=== PATIENT | male | born 1990 | race African-American/Black ===

== ENCOUNTER 2018-01-25 09:57 | Emergency (ER) | payer MEDICAID, SELFPAY ==
[2018-01-25 09:58] VITALS: BP 128/68; PULSE 68; RESP 18; TEMP 36.7; O2SAT 99; BMI 24.3
--- NOTE | 2018-01-25 10:06 | EKG12_ITS ---
Test Reason : CHEST PRESSURE Blood Pressure : / mmHG Vent. Rate : 073 BPM Atrial Rate : 073 BPM P-R Int : 114 ms QRS Dur : 088 ms QT Int : 376 ms P-R-T Axes : 074 048 045 degrees QTc Int : 414 ms Normal sinus rhythm Low voltage QRS (limb leads) Confirmed by LUIS MIGUEL CASTANEDA, FLORENCIA ([id number]), primer expeditor and drier THOMAS MCKINNON ([id number]) on 01/28/2018 2:25:03 PM Referred By: DC Confirmed By:FLORENCIA BOLANOS MD
--- NOTE | 2018-01-25 10:06 | RAD_ITS ---
STUDY: X-RAY CHEST REASON FOR EXAM: Male, 27 years old. Cough. Chest pain. TECHNIQUE: Single frontal view of the chest is obtained. Good quality COMPARISON: February 06, 2014. FINDINGS: The lungs are clear and expanded. There is no demonstrated pleural abnormality. Normal size heart. Normal mediastinum and karina. Normal visualized pulmonary arteries. Normal visualized aortic arch and descending thoracic aorta. Normal visualized thoracic spine. Normal visualized ribs, clavicles, and shoulders. There is no demonstrated abnormality of the visualized soft tissue structures of the upper abdomen. RAD/Chest 1 View (Portable) IMPRESSION: No active chest disease. Electronically Signed: Beau Nevarez, at 10:38 EST Tel , Service support ,
--- NOTE | 2018-01-25 10:10 | ED.DCSUM_ITS ---
- ER Visit Summary Date of Service: 01/25/18 Chief Complaint: Chest pain History of Present Illness: The patient is a 27 M with substernal chest pain that he describes as a tightness. It started around 3 AM today. It is severe at times. Associate with a cough and backache. The patient never had this bef ore. He is not sure what brought it on. Nothing seems to make it better. It is worse in certain positions. No recent illnesses or fevers. He thought he might have a cold however. Denies any heart problems or history of blood clots. Denies any aortic issues or liver issues. Denies fever or other associated symptoms. Physical Examination: Afebrile and vital signs unremarkable. Patient appears uncomfortable with movement but is otherwise in no acute distress. Alert and oriented. Skin appears normal. Heart regular rate and rhythm. Lungs clear. Calves soft and supple. Test Results: EKG, chest x-ray, and blood work pending. Emergency Department Course and Treatment: Patient treated with a GI cocktail while awaiting results. I have low suspicion for ACS or dissection. He is not having classic infectious symptoms. He is PERC negative. Will first check for anything life-threatening or emergent. EKG showed sinus rhythm at a rate of 73. Chest x-ray was unremarkable. CBC normal. BMP unremarkable. Hepatic panel unremarkable. Lipase normal. Troponin normal. No improvement with GI cocktail. I suspect this may be myofascial pain. I have low suspicion for ACS or heart disease. Nothing to suggest PE or dissection. No signs of infection or nothing to suggest hepatobiliary, pancreatic, or GI pathology. Patient will be treated with a course of muscle relaxers. He may use anti-inflammatories and pbxj-ylh-gncgsqo remedies for pain. Follow-up with primary care. Treatment Plan: As above Disposition: Discharge Impression: 1. Epigastric pain This note was generated with Asterion dictation software. It may contain incorrect words, spelling, and punctuation that were not noted in review of the chart prior to signing ED Disposition - Plan for ED Patient: Chief Complaint: Cold Sx Referrals: Brent Miranda MD [Primary Care Provider] -
[2018-01-25] MEDS: Mag Hydrox/Al Hydrox/Simeth 30 ML UDC PO (10:24)
[2018-01-25 10:50] VITALS: RESP 18; O2SAT 97
[2018-01-25 10:58] LABS: Absolute Lymphocyte Count 1.83 X10^3/ul (0.83-4.51); Absolute Neutrophil Count 2.9 X10^3/uL (2.0-7.7); Basophil# 0.06 X10^3/uL; Basophil% 1.1 % (0-1); Eosinophil# 0.13 X10^3/uL; Eosinophils% 2.5 % (0-5); Hematocrit 44.9 % (40-54); Hemoglobin 14.8 g/dl (13.0-16.5); Lymphocyte # 1.83 X10^3/ul (4.0); Lymphocyte % 34.9 % (19-41); Mean Corpuscular Hgb 28.6 pg (27.0-32.0); Mean Corpuscular Volume 86.8 fL (80-94); Mean Platelet Vol. 11.3 fl (6.2-12.0); Monocyte# 0.38 X10^3/uL; Monocyte% 7.2 % (0-10); Neutrophil # 2.85 X10^3/uL (2.7-7.7); Neutrophil % 54.3 % (47-70); Platelet Count 258 K/mm3 (150-450); RBC Distribution Width CV 14.4 % (11.6-14.6); RBC Distribution Width SD 45.8 fl (35.1-43.9); Red Blood Count 5.17 M/mm3 (4.6-6.2); White Blood Count 5.3 K/mm3 (4.4-11.0)
[2018-01-25 11:01] LABS: POSITIVE COUNT NO; POSITIVE DIFFERENTIAL NO; POSITIVE MORPHOLOGY NO
[2018-01-25 11:07] LABS: ALB/GLOB Ratio 0.8 RATIO (0.9-2.4); AST(SGOT) 20 U/L (15-37); Alanine Aminotransfer ALT/SGPT 22 U/L (16-61); Albumin, Serum 3.1 g/dL (3.2-5.0); Alkaline Phosphatase 120 U/L (45-117); Anion Gap 8 (5-15); BUN 8 mg/dL (7-18); BUN/Creat Ratio 8.1 RATIO (10-20); Calcium,Total 8.5 mg/dL (8.5-10.1); Chloride 108 mmol/L (98-107); Creatinine, Serum 0.99 mg/dL (0.70-1.30); EST Glomerular Filtration Rate 97 mL/min (>60); Est Glom Filt Rate - Afr Amer 117 mL/min (>60); Estimated Creatinine Clearance 109.39 ml/min; Globulin 3.9 g/dL (2.2-4.2); Glucose 72 mg/dL (74-106); Lipase 149 U/L (73-393); Potassium 4.1 mmol/L (3.5-5.1); Sodium Level 141 mmol/L (136-145)
--- NOTE | 2018-01-25 11:19 | ED.DEP ---
ED Disposition - Plan for ED Patient: Chief Complaint: Cold Sx Instructions: ED Epigastric Pain [facility] Prescriptions: Cyclobenzaprine [Flexeril] 10 mg PO TID PRN #20 tab PRN Reason: Muscle Spasm Referrals: Brent Miranda MD [Primary Care Provider] -
--- OUTSIDE RECORDS SUMMARY | 2018-03-21 19:44 | XMS RPT_ITS ---
:1990 Author Organization [facility] Care Team Providers Name Role Phone Brent Miranda Primary Care Unavailable Beau Mendoza Attending Unavailable PROBLEMS PROBLEMS No Problem Records FoundPROCEDURES PROCEDURES No Procedure Records FoundRESULTS RESULTS 12 LEAD ELECTROCARDIOGRAM Observed: 01/28/2018 Status: F Source: [place] 2:25 PM [facility] REPOSITORY [facility] Cardiovascular Services [address] [place] [address] 12 Lead EKG 01/25/18 1016 MR#: [id number] Acct: [id number] Name: GAIL FIGUEROA Rep #: [id number] : 1990 27 From: Reagan Bolanos MD Attending Dr: Status: DEP ER Ordering Dr: Beau Mendoza MD Date: 01/25/18 Location: ED Sex: M AA Admitted: Test Reason : CHEST PRESSURE Blood Pressure : / mmHG Vent. Rate : 073 BPM Atrial Rate : 073 BPM P-R Int : 114 ms QRS Dur : 088 ms QT Int : 376 ms P-R-T Axes : 074 048 045 degrees QTc Int : 414 ms Normal sinus rhythm Low voltage QRS (limb leads) Confirmed by LUIS MIGUEL CASTANEDA, REAGAN ([id number]), sports editor THOMAS MCKINNON ([id number]) on 01/28/2018 2:25:03 PM Referred By: DC Confirmed By:REAGAN BOLANOS MD 01/28/18 1425 Date Reagan Bolanos MD CC: Beau Mendoza MD; Brent Miranda MD Signed DISCHARGE INSTRUCTION Observed: 01/25/2018 Status: F Source: [place] 12:04 PM [facility] REPOSITORY [facility] Medical Records Department [address] [place] [address] Discharge Instruction 01/25/18 1119 MR#: [id number] Acct: [id number] Name: GAIL FIGUEROA Rep #: [id number] : 1990 From: Beau Mendoza MD PCP: Brent Miranda MD Status: DEP ER ED Disposition - Plan for ED Patient: Chief Complaint: Cold Sx Instructions: ED Epigastric Pain [facility] Prescriptions: Cyclobenzaprine [Flexeril] 10 mg PO TID PRN #20 tab PRN Reason: Muscle Spasm Referrals: Brent Miranda MD [Primary Care Provider] - What to do if you have Problems For any increased pain, shortness of breath, bleeding, nausea or vomiting, chest pain, or any unexpected problems, contact your Primary Care Provider. Call [facility] ([phone]) or report to the closest Emergency Room. Call 911 if necessary. 01/25/18 1204 <Electronically signed by Beau Mendoza MD> Date Beau Mendoza MD Cosigner Signature (If Indicated): Date CC: Brent Miranda MD EMERGENCY DEPARTMENT Observed: 01/25/2018 Status: F Source: [place] SUMMARY 12:04 PM [facility] REPOSITORY [facility] Medical Records Department [address] [place] [address] Emergency Department Summary 01/25/18 1008 MR#: [id number] Acct: [id number] Name: GAIL FIGUEROA Rep #: [id number] : 1990 27 From: Beau Mendoza MD PCP: Brent Miranda MD Status: DEP ER - ER Visit Summary Date of Service: 01/25/18 Chief Complaint: Chest pain History of Present Illness: The patient is a 27 M with substernal chest pain that he describes as a tightness. It started around 3 AM today. It is severe at times. Associate with a cough and backache. The patient never had this before. He is not sure what brought it on. Nothing seems to make it better. It is worse in certain positions. No recent illnesses or fevers. He thought he might have a cold however. Denies any heart problems or history of blood clots. Denies any aortic issues or liver issues. Denies fever or other associated symptoms. Physical Examination: Afebrile and vital signs unremarkable. Patient appears uncomfortable with movement but is otherwise in no acute distress. Alert and oriented. Skin appears normal. Heart regular rate and rhythm. Lungs clear. Calves soft and supple. Test Results: EKG, chest x-ray, and blood work pending. Emergency Department Course and Treatment: Patient treated with a GI cocktail while awaiting results. I have low suspicion for ACS or dissection. He is not having classic infectious symptoms. He is PERC negative. Will first check for anything life-threatening or emergent. EKG showed sinus rhythm at a rate of 73. Chest x-ray was unremarkable. CBC normal. BMP unremarkable. Hepatic panel unremarkable. Lipase normal. Troponin normal. No improvement with GI cocktail. I suspect this may be myofascial pain. I have low suspicion for ACS or heart disease. Nothing to suggest PE or dissection. No signs of infection or nothing to suggest hepatobiliary, pancreatic, or GI pathology. Patient will be treated with a course of muscle relaxers. He may use anti-inflammatories and hxul-jif-ueuycuy remedies for pain. Follow-up with primary care. Treatment Plan: As above Disposition: Discharge Impression: 1. Epigastric pain This note was generated with Yap dictation software. It may contain incorrect words, spelling, and punctuation that were not noted in review of the chart prior to signing ED Disposition - Plan for ED Patient: Chief Complaint: Cold Sx Referrals: Brent Miranda MD [Primary Care Provider] - What to do if you have Problems For any increased pain, shortness of breath, bleeding, nausea or vomiting, chest pain, or any unexpected problems, contact your Primary Care Provider. Call [facility] ([phone]) or report to the closest Emergency Room. Call 911 if necessary. 01/25/18 1204 <Electronically signed by Beau Mendoza MD> Date Beau Mendoza MD Cosigner Signature (If Indicated): Date CC: Brent Miranda MD CBC W/DIFF, AUTOMATED Collected: 01/25/2018 Status: F Source: [place] 10:20 AM [facility] REPOSITORY TYPE CODE TESTS RESULT OUT OF RANGE REFERENCE UNITS LAB L100.1000 4.4-11.0 K/mm3 Normal WBC 5.3 LAB L100.1200 4.6-6.2 M/mm3 Normal RBC 5.17 LAB L100.1300 13.0-16.5 g/dl Normal HGB 14.8 LAB L100.1400 40-54 % Normal HCT 44.9 LAB L100.1500 80-94 fL Normal MCV 86.8 LAB L100.1600 27.0-32.0 pg Normal MCH 28.6 LAB L100.1700 32-36 g/gl Normal MCHC 33.0 LAB L100.1810 11.6-14.6 % Normal RDW CV 14.4 LAB L100.1820 35.1-43.9 fl High RDW SD 45.8 LAB L100.1900 150-450 K/mm3 Normal PLT 258 LAB L100.2000 6.2-12.0 fl Normal MPV 11.3 LAB L100.2100 47-70 % Normal NEUT% 54.3 LAB L100.2200 19-41 % Normal LY% 34.9 LAB L100.2300 0-10 % Normal MONO% 7.2 LAB L100.2400 0-5 % Normal EO% 2.5 LAB L100.2500 0-1 % High BASO% 1.1 LAB L100.2550 0.0-0.9 % Normal IM GRAN % 0.000 Result Comment: IG% - Immature Granulocytes (promyelocytes, myelocytes and metamyelocytes) > 1% indicates that a LEFT SHIFT is Present. LAB L100.2620 2.0-7.7 X10 3/uL Normal Absolute Neut 2.9 LAB L100.2720 0.83-4.51 X10 3/ul Normal Absolute Lymph 1.83 Performed By: #### L100.0100 #### [facility] [address] [place], [address] COMPREHENSIVE METABOLIC Collected: 01/25/2018 Status: F Source: [place] [facility] 10:20 AM [facility] REPOSITORY TYPE CODE TESTS RESULT OUT OF RANGE REFERENCE UNITS LAB L501.0100 74-106 mg/dL Low GLU 72 Result Comment: Please note revised GLUCOSE reference range effective 2017. LAB L501.1000 7-18 mg/dL Normal BUN 8 LAB L501.1100 0.70-1.30 mg/dL Normal CREAT,SERUM 0.99 Result Comment: The validity of the calculated GFR AND GFRAA in patients over 70 years has not been determined. Clinical correlation is essential. LAB L501.1110 >60 mL/min Normal EST GFR 97 Result Comment: Non- GFR Calc LAB L501.1115 >60 mL/min Normal EST GFR - AA 117 Result Comment: GFR Calc LAB L501.1255 ml/min Normal Estimated CRCL 109.39 LAB L501.1300 10-20 RATIO Low BUN/CRE 8.1 LAB L501.1500 6.4-8. g/dL 2 T PROT Normal 7.0 LAB L501.1800 3.2-5. g/dL Low 0 ALB 3.1 LAB L501.1950 2.2-4. g/dL 2 GLOB Normal 3.9 LAB L501.2000 0.9-2. RATIO Low 4 A/G 0.8 LAB L501.2200 8.5-10 mg/dL .1 CA Normal 8.5 LAB L501.4100 15-37 U/L AST Normal 20 LAB L501.4305 45-117 U/L High ALK P 120 LAB L501.4405 16-61 U/L ALT Normal 22 LAB L501.4600 0.20-1 mg/dL Low .00 T BILI 0.10 LAB L501.5300 136-14 mmol/L 5 NA Normal 141 LAB L501.5600 3.5-5. mmol/L 1 K Normal 4.1 LAB L501.5900 98-107 mmol/L High CL 108 LAB L501.6100 21.0-3 mmol/L 2.0 CO2 Normal 25.0 LAB L501.6200 5-15 GAP Normal 8 Performed By: #### L500.4050, L501.2450, L501.4010 #### [facility] [address] [place], [address] LIPASE Collected: 01/25/2018 Status: F Source: [place] 10:20 AM [facility] REPOSITORY TYPE CODE TESTS RESULT OUT OF RANGE REFERENCE UNITS LAB L501.2450 73-393 U/L Normal LIPASE 149 Performed By: #### L500.4050, L501.2450, L501.4010 #### [facility] [address] [place], [address] TROPONIN-I Collected: 01/25/2018 Status: F Source: [place] 10:20 AM [facility] REPOSITORY TYPE CODE TESTS RESULT OUT OF RANGE REFERENCE UNITS LAB L501.4010 <0.045 ng/mL Normal < 0.015 TROPONIN-I Result Comment: TROPONIN-I EXPECTED VALUES <0.045 Negative 0.045 - 0.590 Consistent with Cardiac Damage > OR = 0.600 Critical Value Not every elevated troponin is indicative of KS. These values should be used with clinical judgement in examining the patient's clinical picture for diagnosis. To establish a diagnosis of KS versus myocardial injury, there must be a demonstrated rise and/or fall in the troponin values, in addition to ischemic symptoms, EKG changes, new regional wall motion abnormality, and/or angiographical evidence. PLEASE NOTE: REFERENCE RANGES EDITED 17 Performed By: #### L500.4050, L501.2450, L501.4010 #### [facility] [address] [place], [place], [address] CHEST 1 VIEW Observed: 01/25/2018 Status: F Source: [place] (PORTABLE) 10:08 AM [facility] REPOSITORY [facility] Imaging Services [address] [place] [address] Chest 1 View (Portable) MR#: [id number] Acct: [id number] Name: GAIL FIGUEROA Rep #: [id number] : 1990 M 27 From: Beau Nevarez MD PCP: Brent Miranda MD Status: REG ER Study: Chest 1 View (Portable) Date of Exam: 01/25/18 Exam# [id number] Ordering Dr: Beau Mendoza MD STUDY: X-RAY CHEST REASON FOR EXAM: Male, 27 years old. Cough. Chest pain. TECHNIQUE: Single frontal view of the chest is obtained. Good quality COMPARISON: February 06, 2014. FINDINGS: The lungs are clear and expanded. There is no demonstrated pleural abnormality. Normal size heart. Normal mediastinum and karina. Normal visualized pulmonary arteries. Normal visualized aortic arch and descending thoracic aorta. Normal visualized thoracic spine. Normal visualized ribs, clavicles, and shoulders. There is no demonstrated abnormality of the visualized soft tissue structures of the upper abdomen. RAD/Chest 1 View (Portable) IMPRESSION: No active chest disease. Electronically Signed: Beau Nevarez, at 10:38 EST Tel , Service support , CC: Beau Mendoza MD; Brent Miranda MD Gauger Chief Delivery: Signed ALLERGIES ALLERGIES DATE TYPE / CODE NAME / CODE REACTION SEVERITY SOURCE 01/25/2018 Drug naproxen/F00 [facility] [id number]([facility] [address](SNOMED RM) Repository CT) ENCOUNTERS ENCOUNTERS ADMIT/DISCHARGE ACCOUNT ADMITTING ENCOUNTER LOCATION SOURCE NUMBER CLASS 01/25/2018/ [id number] Emergency [place] [address] [facility] ing:ED Repository PAYERS PAYERS ENCOUNTER GUARANTOR PAYER SUBSCRIBER SOURCE 01/25/2018 GAIL Thakur Primary GAIL Thakur [place] [id number] [place] Insurance:CARESOURCEP YOSTDOB: [facility] Number: [id number] [address]Avl: [id number] Repository [phone] () Date:2018-01-25[address]ATTN: [place] [address]QS: 01/25/2018 Secondary NOT GIVENUNK [place] Insurance:SELF PAY [facility] Number: Effective Repository Date:2018-01-25
== END 2018-01-25 11:28 | disposition home or self-care (01) ==
PROVIDERS: Emergency Provider Emergency Medicine; Family Provider Family Medicine; PCP Family Medicine
DX: R10.13 Epigastric pain (principal); R05 Cough; M54.9 Dorsalgia, unspecified; F41.9 Anxiety disorder, unspecified; Z79.899 Other long term (current) drug therapy; Z72.0 Tobacco use
CPT/HCPCS: 71045; 80053; 83690; 84484; 85025; 93005; 99284; A4216

== ENCOUNTER 2018-07-03 11:28 | Emergency (ER) | payer MEDICAID, SELFPAY ==
[2018-07-03 11:30] VITALS: BP 115/77; PULSE 88; RESP 14; TEMP 37.1; O2SAT 96; BMI 21.2
--- NOTE | 2018-07-03 11:52 | ED.VISSUMM ---
- ER Visit Summary Date of Service: 07/03/18 Chief Complaint: Left groin pain History of Present Illness: The patient is a 28 M who presents with pain in his left groin that began yesterday while at work. 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 Patient states he went to move the shingles with his foot and he felt a pop in his left groin. Patient states his pain is worse with any movement. Patient states his pain improves with rest. Patient describes the pain is sharp and aching. Patient admits to some nausea but denies any vomiting. Patient denies any chest pain or shortness of breath. Physical Examination: Vital signs are stable. Patient is afebrile. Patient is in no acute distress. Oral mucosa is pink and moist. Neck is supple. There is no JVD noted. Heart was regular rate and rhythm. Lungs are clear and equal bilaterally. Abdomen is soft. Bowel sounds are normal. There is no tenderness. There is no guarding noted. There are no inguinal hernias palpated. Musculoskeletal exam reveals tenderness over the left hip area. There is no deformity noted. Range of motion was limited in flexion of the left hip secondary to pain. Sensation was intact to light touch in all dermatomes of the lower extremities. Strength is 5/5 bilaterally in the lower extremities. The remaining physical exam is within normal limits. Emergency Department Course and Treatment: Patient was instructed to use ice to the area. Patient was instructed to follow-up with his primary care physician in 5 to 7 days. Patient was given a prescription for ibuprofen. Patient understood and was agreeable with the plan. All questions were answered. Disposition: Discharge home Impression: Left inguinal strain This note was generated with Buck Mason dictation software. It may contain incorrect words, spelling, and punctuation that were not noted in review of the chart prior to signing ED Disposition - Plan for ED Patient: Disposition: Home or Assisted Living Diagnosis: Strain of left inguinal muscle Instructions: ED Strain Groin Prescriptions: Ibuprofen 800 mg PO Q8H PRN PRN #20 tab PRN Reason: Pain Referrals: Brent Miranda MD [Primary Care Provider] - 5-7 Days
--- NOTE | 2018-07-03 11:57 | ED.DCSUM_ITS ---
- ER Visit Summary Date of Service: 07/03/18 Chief Complaint: Left groin pain History of Present Illness: The patient is a 28 M who presents with pain in his left groin that began yesterday while at work. 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 Patient states he went to move the shingles with his foot and he felt a pop in his left groin. Patient states his pain is worse with any movement. Patient states his pain improves with rest. Patient describes the pain is sharp and aching. Patient admits to some nausea but denies any vomiting. Patient denies any chest pain or shortness of breath. Physical Examination: Vital signs are stable. Patient is afebrile. Patient is in no acute distress. Oral mucosa is pink and moist. Neck is supple. There is no JVD noted. Heart was regular rate and rhythm. Lungs are clear and equal bilaterally. Abdomen is soft. Bowel sounds are normal. There is no tenderness. There is no guarding noted. There are no inguinal hernias palpated. Musculoskeletal exam reveals tenderness over the left hip area. The re is no deformity noted. Range of motion was limited in flexion of the left hip secondary to pain. Sensation was intact to light touch in all dermatomes of the lower extremities. Strength is 5/5 bilaterally in the lower extremities. The remaining physical exam is within normal limits. Emergency Department Course and Treatment: Patient was instructed to use ice to the area. Patient was instructed to follow-up with his primary care physician in 5 to 7 days. Patient was given a prescription for ibuprofen. Patient understood and was agreeable with the plan. All questions were answered. Disposition: Discharge home Impression: Left inguinal strain This note was generated with YouSticker dictation software. It may contain incorrect words, spelling, and punctuation that were not noted in review of the chart prior to signing ED Disposition - Plan for ED Patient: Disposition: Home or Assisted Living Diagnosis: Strain of left inguinal muscle Instructions: ED Strain Groin Prescriptions: Ibuprofen 800 mg PO Q8H PRN PRN #20 tab PRN Reason: Pain Referrals: Brent Miranda MD [Primary Care Provider] - 5-7 Days
== END 2018-07-03 12:16 | disposition home or self-care (01) ==
PROVIDERS: Emergency Provider Emergency Medicine; Family Provider Family Medicine; PCP Family Medicine
DX: S39.011A Strain of muscle, fascia and tendon of abdomen, initial encounter (principal); R11.0 Nausea; X58.XXXA Exposure to other specified factors, initial encounter; Y93.9 Activity, unspecified; Y92.9 Unspecified place or not applicable; F17.200 Nicotine dependence, unspecified, uncomplicated
CPT/HCPCS: 99282

== ENCOUNTER 2020-01-17 16:26 | Emergency (ER) | payer MEDICAID, SELFPAY ==
[2020-01-17 16:27] VITALS: BP 134/80; PULSE 76; RESP 25; TEMP 37.1; O2SAT 100; BMI 23.8
--- NOTE | 2020-01-17 16:40 | RAD_ITS ---
STUDY: X-RAY CHEST REASON FOR EXAM: Male, 29 years old. Mid chest pain. TECHNIQUE: AP COMPARISON: None. FINDINGS: The lungs are clear and expanded. There is no demonstrated pleural abnormality. Normal size heart. Normal mediastinum and karina. Normal visualized pulmonary arteries. Normal visualized aortic arch and descending thoracic aorta. Normal visualized thoracic spine. Normal visualized ribs, clavicles, and shoulders. There is no demonstrated abnormality of the visualized soft tissue structures of the upper abdomen. RAD/Chest 1 View (Portable) IMPRESSION: Stable, nonacute portable x-ray examination of the chest. Electronically Signed: Joesph Mattson MD (Brooks) at 17:31 EST , Service support ,
--- NOTE | 2020-01-17 16:40 | EKG12_ITS ---
Test Reason : CP Blood Pressure : / mmHG Vent. Rate : 069 BPM Atrial Rate : 069 BPM P-R Int : 130 ms QRS Dur : 090 ms QT Int : 374 ms P-R-T Axes : 069 034 060 degrees QTc Int : 400 ms Normal sinus rhythm Possible Left atrial enlargement Borderline ECG Confirmed by SARAI CASTANEDA, JANE ([id number]), advertising editor GOGO SENA ([id number]) on 01/20/2020 10:35:01 AM Referred By: DUNG Confirmed By:JANE MOON MD
--- NOTE | 2020-01-17 16:54 | ED.DCSUM_ITS ---
- ER Visit Summary Date of Service: 01/17/20 Chief Complaint: Left lower chest pain History of Present Illness: The patient is a 29 M past medical history of anxiety and depression. No prior cardiac history. No family history. No history of DVT or blood clots. No risk factors. No family history of clotting disorder. No hemoptysis. No pleuritic pain. Patient states last night he had intermittent left-sided chest pain again today. Worse with movement. Denies dyspnea. Denies fever or cough. Denies leg pain or swelling. He has had no recent travel, surgery or immobilization. Physical Examination: Well-appearing young male. No acute distress. Vital signs stable and afebrile. Pulse ox 100% on room air no hypoxia. H EENT exam unremarkable. Neck nontender. Lungs clear to auscultation bilaterally. Equal symmetrical. Chest wall unremarkable. Nontender. No signs of trauma. No subcu air crepitance. No bony tenderness. Heart regular rate and rhythm rate about 70 no murmur. Abdomen soft nontender normal bowel sounds no peritoneal signs. Absolutely no abdominal tenderness. Back nontender. Extremities moves all 4. Equal symmetrical [employer] consultant strength. Equal symmetrical radial pulses. Calves are nontender without edema or cords. Normal motor strength upper and lower extremities. Back nontender. Skin unremarkable. Test Results: EKG shows normal sinus rhythm rate of 69 with no acute signs of ND or ischemia. No S1Q3T3. Portable chest x-ray interpreted by myself. Shows normal cardiac silhouette, mediastinum and lung hooper. No bony abnormalities. No infiltrate. No pneumothorax. Radiologist is pending. Emergency Department Course and Treatment: Patient treated with Motrin for pain. Elderly needs a lab work. He has no risk factors for DVT or PE. Sounds like it is musculoskeletal. He has a normal EKG. Repeat exam patient is doing well at 1728. I went over the x-ray with him. Treatment Plan: Motrin for pain. Follow-up if not improving. Disposition: discharge Impression: Left-sided chest pain secondary to musculoskeletal etiology This note was generated with NetMovieation software. It may contain incorrect words, spelling, and punctuation that were not noted in review of the chart prior to signing ED Disposition - Plan for ED Patient: Referrals: Brent Miranda MD [Primary Care Provider] -
--- NOTE | 2020-01-17 17:30 | ED.DEP ---
ED Disposition - Plan for ED Patient: Disposition: Home or Assisted Living Instructions: ED Strain Chest Wall Referrals: Brent Miranda MD [Primary Care Provider] - 1 Week if not improving Additional Instructions: Motrin or ibuprofen for pain. 600 mg 3 times a day. This should progressively improve if not follow-up with your doctor. Your EKG and chest x-ray were both normal.
[2020-01-17 17:35] VITALS: BP 125/84; PULSE 80; RESP 20
[2020-01-17] MEDS: Ibuprofen 600 MG Tablet PO (17:41)
== END 2020-01-17 17:42 | disposition home or self-care (01) ==
PROVIDERS: Emergency Provider Emergency Medicine; PCP Family Medicine
DX: R07.89 Other chest pain (principal); F41.9 Anxiety disorder, unspecified; F32.9 Major depressive disorder, single episode, unspecified; F17.200 Nicotine dependence, unspecified, uncomplicated
CPT/HCPCS: 71045; 93005; 99284; A4216

== ENCOUNTER 2020-07-28 09:00 | Emergency (ER) | payer MEDICAID, SELFPAY ==
[2020-07-28 09:01] VITALS: BP 130/76; PULSE 71; RESP 15; TEMP 36.4; O2SAT 96; BMI 21.2
--- NOTE | 2020-07-28 09:07 | EDS_ITS ---
HPI History of Present Illness Chief Complaint: GI Bleed Informant: patient Onset/Context/Timing Onset: Today Current Severity: Mild Maximum Severity: Mild Narrative Narrative: Patient presents to the emergency department with 1 episode of bright red blood per rectum. Patient states that he moved his bowels today. He states that he noticed some bright red blood He denies any fevers or chills. He is not on anticoagulants. with the stool and on the toilet paper. His bleeding is since stopped. He denies any constipation. He denies abdominal pain. PFSH PFSH no medical history Home Medications docusate sodium [Colace] 100 mg PO BID #30 cap 07/28/20 [Rx Last Taken Unknown] hydrocortisone [Anusol-HC] 1 applic NH QHS PRN #30 g 07/28/20 [Rx Last Taken Unknown] Allergy/AdvReac Type Severity Reaction Status Date / Time naproxen [From Naprosyn] Allergy Rash Verified 07/28/20 09:03 Social History Smoking Status: Current every day smoker tobacco type: cigarettes ROS ROS ED Constitutional Constitutional ED: Denies chills or fever(s) Eyes Eyes: Denies blurry vision or change in vision ENT ENT ED: Denies ear pain or sore throat Cardiovascular Cardiovascular: Denies chest pain or palpitations Respiratory/Chest Respiratory/Chest: Denies cough, dyspnea or dyspnea on exertion Gastrointestinal Gastrointestinal: Reports constipation Genitourinary Genitourinary ED: Denies dysuria or urinary frequency Musculoskeletal Musculoskeletal: Denies arthralgias or myalgias Integumentary Denies rash Neurologic Neurologic: Denies headache(s) or paresthesias Psychiatric Psychiatric: Denies anxiety or depression Endocrine Endocrinology: Denies polydipsia or polyuria Allergic/Immunologic Allergic/Immunologic ED: Denies urticaria EXAM Physical Exam Const Vital Signs: 07/28/20 09:01 Temperature 97.6 F L Temperature Source Temporal Pulse Rate 71 Respiratory Rate 15 Blood Pressure 130/76 H Blood Pressure Mean 94 Pulse Ox 96 Oxygen Delivery Method Room Air Positive well nourished and well developed General Appearance ED: well developed HEENT Reports normocephalic, head/scalp atraumatic and moist mucous membranes Eyes PERRL and EOMs intact bilaterally Neck no lymphadenopathy and supple General: Negative for tenderness Chest Wall inspection of chest normal Resp normal respiratory effort and clear to auscultation bilaterally Cardio regular rate, regular rhythm and no murmurs GI normal to inspection, nondistended, normoactive bowel sounds Palpation: Negative for tender, guarding or rebound tenderness present Narrative: Rectal exam was done with nurse cinder pitman. Patient has a small fissure at the 12 o'clock position with stigmata of recent bleeding. There is no active bleeding. There is no abscess or significant hemorrhoid. Back/Spine no CVA tenderness Cervical Spine: Negative for cervical spine tenderness Thoracic Spine / Upper Back: Negative for thoracic spinal tenderness Extremity normal to inspection General Extremety ED: Negative for tenderness Neuro oriented x3 and CN's II-XII intact bilaterally Neuro Narrative: No focal deficits appreciated. Sensorium / Orientation: alert Psych mental status grossly normal Skin no rashes or lesions noted, no wounds and skin turgor normal MDM MDM MDM Narrative Medical decision making narrative: The patient presents with episode of blood per rectum. He does have fissure on examination. He has no pain. He is not on anticoagulants. I am going to place him on Anusol and stool softeners. He will be discharged home. Impression 1. Anal fissure Discharge Plan Triage Chief Complaint: GI Bleed ED Provider: Jose Lynch Dx/Rx/DC Orders Instructions: ED Lower GI Bleeding (Stable) Prescriptions: New docusate sodium [Colace] 100 mg capsule 100 mg PO BID Qty: 30 RF: 0 hydrocortisone [Anusol-HC] 2.5 % cream with perineal applicator 1 applic NH QHS PRN (Reason: pain) Qty: 30 RF: 0 Primary Care Provider: Brent Miranda Referrals: Brent Miranda MD [Primary Care Provider] -
[2020-07-28 09:21] VITALS: RESP 16
== END 2020-07-28 09:22 | disposition home or self-care (01) ==
LOC: ED 09:19
PROVIDERS: Emergency Provider Emergency Medicine; PCP Family Medicine
DX: K60.2 Anal fissure, unspecified (principal); F17.210 Nicotine dependence, cigarettes, uncomplicated
CPT/HCPCS: 99282

== ENCOUNTER 2021-08-06 20:52 | Emergency (ER) | payer OTHER, MEDICAID, SELFPAY ==
[2021-08-06 20:53] VITALS: BP 129/85; PULSE 95; RESP 16; TEMP 36.1; O2SAT 97; BMI 22.1
--- NOTE | 2021-08-06 21:06 | ED.VIS.DENTA ---
HPI History of Present Illness Chief Complaint: Dental Detail of Chief Complaint: Left upper dental pain. Dental caries. Informant: patient Onset/Context/Timing Onset: Today and Hours Context: Gradual Onset Timing: Continuous Current Severity: Moderate Maximum Severity: Moderate Associated Symptoms Assocated Symptom - Dental: cold sensitivity and hot sensitivity; Negative for fever, jaw swelling or face swelling Narrative Narrative: 31-year-old male no seen past medical or surgical history. States in June was on antibiotics for dental caries and dental infection. Has not seen a dentist as of yet for that. Has been off antibiotics now 1 to 2 weeks. States today in the last several hours has developed pain in the left upper dentition. No other complaints. Prior similar symptoms: Yes Recent Illness/Hospitalization: No PFSH PFSH Medical History no medical history no medical history Home Medications penicillin V potassium 500 mg PO 4X/DAY #40 tab 08/06/21 [Rx Last Taken Unknown] Allergy/AdvReac Type Severity Reaction Status Date / Time naproxen [From Naprosyn] Allergy Rash Verified 08/06/21 20:55 Surgical History no surgical history no surgical history Social History Smoking Status: Current every day smoker tobacco type: cigarettes ROS ROS ED ROS Narrative Dental pain. Review of Systems ROS Unobtainable: Denies due to encephalopathy Constitutional Constitutional ED: Denies fever(s) Eyes Eyes: Denies change in vision ENT ENT ED: Denies ear pain Cardiovascular Cardiovascular: Denies chest pain Respiratory/Chest Respiratory/Chest: Denies cough or dyspnea Gastrointestinal Gastrointestinal: Denies abdominal pain, nausea or vomiting Genitourinary Genitourinary ED: Denies dysuria Musculoskeletal Musculoskeletal: Denies myalgias Integumentary Denies rash Neurologic Neurologic: Denies headache(s) Psychiatric Psychiatric: Denies depression Endocrine Endocrinology: Denies polyuria Hematologic/Lymphatic Hematologic/Lymphatic: Denies easy bruising Allergic/Immunologic Allergic/Immunologic ED: Denies urticaria EXAM Physical Exam Narrative Exam Narrative: 31-year-old male complaining of dental pain. Vital signs stable afebrile. H EENT exam unremarkable except very poor dentition. Multiple caries. Dental decay. His left upper molars and premolars eroded to the gumline. There is gingival swelling but no abscess. Able to open and close his mouth. No trouble swallowing or breathing. The floor of his mouth is nontender. There is no swelling to his face. There is no swelling to his neck or lymphadenopathy or tenderness. Lungs are clear. Heart regular rate and rhythm no murmur. Otherwise exam unremarkable. Const Vital Signs: 08/06/21 20:53 Temperature 96.9 F L Temperature Source Temporal Pulse Rate 95 Respiratory Rate 16 Blood Pressure 129/85 H Blood Pressure Mean 99 Pulse Ox 97 Oxygen Delivery Method Room Air Positive well nourished and well developed; Negative for obese, cachectic, contractures or unkempt General Appearance ED: well developed and NAD; Negative for unkempt, cachectic or contractures Nutritional Appearance: Negative for cachectic or obese HEENT tenderness; Negative for trauma Mouth ED: Yes lips normal, Yes tongue normal, Yes salivary gland normal, No mouth trauma and No salivary gland abnormal Mouth: lips normal, tongue normal, salivary gland normal, No mouth trauma and No salivary gland abnormal Teeth and Gingiva: abnormal tooth and associated gingiva, caries, gingiva abnormal, poor dentition and teeth discoloration Throat: posterior oropharynx normal Eyes PERRL and EOMs intact bilaterally General Eye ED: Negative for pale conjunctiva or scleral icterus Neck no lymphadenopathy, supple and no JVD General: normal visual inspection; Negative for anterior neck swelling or tenderness Lymph Lymphatic: no lymphadenopathy noted; Negative for lymphadenopathy Chest Wall inspection of chest normal and palpation of chest normal Resp normal respiratory effort, no retractions and clear to auscultation bilaterally Cardio regular rate, regular rhythm, S1 normal heart sound, S2 normal heart sound and no murmurs GI normal to inspection, nondistended, normoactive bowel sounds, non-tender, non-distended and no masses Palpation: soft Back/Spine no CVA tenderness General Back: Negative for CVA tenderness Thoracic Spine / Upper Back: Negative for thoracic spinal tenderness or paraspinal muscle tenderness Extremity normal to inspection and no joint enlargement General Extremety ED: Negative for edema General Extremity: Negative for edema Neuro oriented x3 and moves all extremities Sensorium / Orientation: alert, oriented to person, oriented to place and oriented to time Motor Exam: strength 5/5 throughout Psych mental status grossly normal Psych Narrative: Due to dental pain. Appearance: Negative for unkempt Mood & Affect: tearful; Negative for depressed Skin no rashes or lesions noted and no wounds MDM MDM MDM Narrative Medical decision making narrative: 31-year-old male very poor dentition with dental caries, dental erosion and decay and gingivitis. We placed on Pen-Vee K given first dose here. Placed on it for 10 days. Tylenol and Motrin at home for pain. He will be given Motrin here and 2 [employer] to use at home. He will not be given a narcotic prescription. He knows it is very important him to follow-up with a dentist as soon as possible. Discharge Plan Triage Chief Complaint: Dental ED Provider: Julian Hernandez Dx/Rx/DC Orders Clinical Impression: Pain, dental, Dental caries, Acute gingivitis Instructions: ED Dental Pain, ED Dental Cavity Prescriptions: New penicillin V potassium 500 mg tablet 500 mg PO 4X/DAY Qty: 40 RF: 0 Primary Care Provider: Brent Miranda Referrals: Brent Miranda MD [Primary Care Provider] - Angela Mendenhall [NON-STAFF] - As soon as possible Activity Restrictions/Additional Instructions: Follow-up with a dentist of your choice as soon as possible. Motrin and Tylenol for pain. [employer] for pain tonight. Warm salt water gargling. Penicillin 1 pill 4 times a day till gone. Disposition Disposition: Home, Self Care
[2021-08-06] MEDS: Ibuprofen 400 MG Tablet 800 MG PO (21:13)
[2021-08-06] MEDS: Penicillin Vk 250 MG Tablet 500 MG PO (21:14)
[2021-08-06] MEDS: HYDROcodone Bitartrate/Apap 5/325 Tablet PO (21:14)
== END 2021-08-06 21:18 | disposition home or self-care (01) ==
PROVIDERS: Emergency Provider Emergency Medicine; PCP Family Medicine; Visit Provider Emergency Medicine
DX: K05.00 Acute gingivitis, plaque induced (principal); K02.9 Dental caries, unspecified; F17.210 Nicotine dependence, cigarettes, uncomplicated
CPT/HCPCS: 99283

== ENCOUNTER 2021-09-27 06:19 | Emergency (ER) | payer OTHER, MEDICAID, SELFPAY ==
[2021-09-27 06:21] VITALS: BP 127/94; PULSE 60; RESP 17; TEMP 36.7; O2SAT 100; BMI 22.1
--- NOTE | 2021-09-27 06:28 | EX.ED.DYSGE1 ---
HPI History of Present Illness Chief Complaint: Anxiety Detail of Chief Complaint: Panic attack Informant: patient Narrative Narrative: Patient presents to the emergency department via EMS after having a panic attack. Patient states that he was in the parking lot at work when he started feeling short of breath and hyperventilating. He started feeling numb and tingly all over. Patient states that he has a history of anxiety attacks but notes had a typically stop them by breathing into a paper bag. He normally has a panic attack about once a month. Patient states that he saw that there was some money missing out of an account that he has and he was concerned about finances and buying kids there back to school things. Patient's been stressing about his finances. Patient normally has Xanax or Klonopin to take as needed basis but has not had a refill recently. Patient denies feeling suicidal or homicidal. On arrival to the ER he does feel improved but still feels a little numb all over. Prior similar symptoms: Yes PFSH PFSH Medical History no medical history Home Medications lorazepam 1 mg tablet (Ativan) 1 mg PO TID PRN anxiety #10 tabs 09/27/21 [Rx Last Taken Unknown] Allergy/AdvReac Type Severity Reaction Status Date / Time naproxen [From Naprosyn] Allergy Rash Verified 09/27/21 06:21 Social History Smoking Status: Current every day smoker tobacco type: cigarettes ROS ROS ED Review of Systems ROS Unobtainable: other Constitutional Constitutional ED: Reports lethargy; Denies chills, fever(s), sweats or weight loss Eyes Eyes: Denies blurry vision, change in vision or diplopia ENT ENT ED: Denies rhinorrhea or sore throat Cardiovascular Cardiovascular: Reports chest pain and racing heartbeat; Denies orthopnea Respiratory/Chest Respiratory/Chest: Reports dyspnea and dyspnea on exertion; Denies cough, orthopnea or sputum Gastrointestinal Gastrointestinal: Denies abdominal pain, diarrhea, nausea or vomiting Genitourinary Genitourinary ED: Denies dysuria, hematuria or urinary frequency Musculoskeletal Musculoskeletal: Denies arthralgias, back pain, myalgias or neck pain Integumentary Denies abscess, Abrasions or rash Neurologic Neurologic: Denies headache(s) or weakness Psychiatric Psychiatric: Reports anxiety; Denies depression or suicidal thoughts Endocrine Endocrinology: Denies polydipsia, polyphagia or polyuria Hematologic/Lymphatic Hematologic/Lymphatic: Denies easy bleeding, easy bruising or lymphadenopathy Allergic/Immunologic Allergic/Immunologic ED: Denies mouth swelling, tongue swelling or urticaria EXAM Physical Exam Const Vital Signs: 09/27/21 06:21 Temperature 98.1 F Temperature Source Temporal Pulse Rate 60 Respiratory Rate 17 Blood Pressure 127/94 H Blood Pressure Mean 105 Pulse Ox 100 Oxygen Delivery Method Room Air Positive well nourished and well developed General Appearance ED: well developed and NAD HEENT Reports TM's clear and moist mucous membranes normocephalic and atraumatic; Negative for trauma or tenderness Tympanic Membrane ED: Yes TM's clear Eyes PERRL and EOMs intact bilaterally General Eye ED: Negative for pale conjunctiva or scleral icterus Neck no lymphadenopathy, supple and no JVD General: Negative for tenderness Chest Wall inspection of chest normal and palpation of chest normal Chest: Negative for tenderness Resp normal respiratory effort and clear to auscultation bilaterally Effort and Inspection: Negative for respiratory distress or pain with movement Auscultation: Negative for rhonchi, wheezes or diminished lung sounds Cardio regular rate, regular rhythm, S1 normal heart sound, S2 normal heart sound and no murmurs Peripheral Pulses: pulses 2+ throughout GI normal to inspection, nondistended, normoactive bowel sounds, soft to palpation, non-tender, non-distended and no masses Back/Spine no CVA tenderness and no thoracic nor lumbar tenderness Extremity normal to inspection General Extremety ED: Negative for edema General Extremity: Negative for edema Neuro oriented x3, CN's II-XII intact bilaterally, no sensory deficits noted and gait normal Sensorium / Orientation: awake, alert, oriented to person, oriented to place and oriented to time Motor Exam: strength 5/5 throughout and strength abnormal Psych mental status grossly normal Skin no rashes or lesions noted and no wounds MDM MDM MDM Narrative Medical decision making narrative: Patient will be given a milligram of Ativan. Patient will be given a prescription for as needed Ativan. Patient advised to follow-up with primary care physician in 3 to 5 days. Discharge Plan Triage Chief Complaint: Anxiety ED Provider: La Agee Dx/Rx/DC Orders Clinical Impression: Panic attack Instructions: ED Panic Attack Prescriptions: New lorazepam [Ativan] 1 mg tablet 1 mg PO TID PRN (Reason: anxiety) Qty: 10 0RF Primary Care Provider: Brent Miranda Referrals: Brent Miranda MD [Primary Care Provider] - 3-5 Days Disposition Disposition: Home, Self Care
--- NOTE | 2021-09-27 06:32 | ED.RN ---
Patient was discussing his social isolation during COVID and now the financial changes. States he has a and children and saw he only had $75 in his account and he does not know how to manage back to school. Resource list given to patient for community places and [facility] who have school supply drives.
[2021-09-27] MEDS: LORazepam 1 MG Tablet PO (06:42)
== END 2021-09-27 07:03 | disposition home or self-care (01) ==
PROVIDERS: Emergency Provider Emergency Medicine; PCP Family Medicine; Visit Provider Emergency Medicine
DX: F41.0 Panic disorder [episodic paroxysmal anxiety] (principal); F17.210 Nicotine dependence, cigarettes, uncomplicated
CPT/HCPCS: 99284

== ENCOUNTER 2022-01-03 22:16 | Emergency (ER) | payer OTHER, MEDICAID, SELFPAY ==
[2022-01-03 22:17] VITALS: BP 125/73; PULSE 88; RESP 16; TEMP 35.6; O2SAT 100; BMI 24.3
--- NOTE | 2022-01-03 22:53 | EX.ED.SAOD ---
HPI History of Present Illness Chief Complaint: Overdose Informant: patient and spouse/S.O. Onset/Context/Timing Onset: Today (JPTA) Context: Sudden Onset (After snorting a drug) Timing: Continuous Quality: Decreased level of consciousness Current Severity: Moderate Maximum Severity: Severe Worsened by: Nothing Relieved by: Narcan given by EMS Associated Symptoms Prehospital Treatment: Naloxone (4 mg intranasally) Narrative Narrative: Patient was with his significant other, he went out back to smoking Black and mild according to the significant other based on what he told her, however the patient admits that he snorted a crushed up PERC 10, but it ended up being heroin I guess. Patient' significant others found him unconscious within 10 or 15 minutes of this when she went to check on him, called EMS and did rescue breaths in the meantime. EMS gave intranasal Narcan 4 mg total which woke him up. Patient states he uses on occasion not daily. PFSH PFSH Medical History no medical history no medical history Home Medications lorazepam 1 mg tablet (Ativan) 1 mg PO TID PRN anxiety #10 tabs 09/27/21 [Rx Last Taken Unknown] Allergy/AdvReac Type Severity Reaction Status Date / Time naproxen [From Naprosyn] Allergy Rash Verified 01/03/22 22:16 Social History Smoking Status: Current every day smoker tobacco type: cigarettes ROS ROS ED Constitutional Constitutional ED: Denies chills or fever(s) Eyes Eyes: Denies change in vision or diplopia ENT ENT ED: Denies rhinorrhea or sore throat Cardiovascular Cardiovascular: Denies chest pain or palpitations Respiratory/Chest Respiratory/Chest: Denies cough or dyspnea Gastrointestinal Gastrointestinal: Denies abdominal pain, diarrhea, nausea or vomiting Genitourinary Genitourinary ED: Denies dysuria or hematuria Musculoskeletal Musculoskeletal: Denies back pain or neck pain Integumentary Denies abscess or rash Neurologic Neurologic: Denies headache(s), paresthesias or weakness Psychiatric Psychiatric: Denies anxiety or suicidal thoughts EXAM Physical Exam Const Vital Signs: 01/03/22 22:17 01/03/22 22:39 01/03/22 23:04 Temperature 96.0 F L Temperature Source Temporal Pulse Rate 88 Respiratory Rate 16 Respiratory Effort Normal Respiratory Pattern Normal Blood Pressure 125/73 H Blood Pressure Mean 90 Pulse Ox 100 Oxygen Delivery Method Room Air Room Air Positive well nourished and well developed Constitutional Narrative: Lethargic. Alerts to voice. General Appearance ED: well developed and NAD HEENT Reports moist mucous membranes normocephalic and atraumatic Eyes PERRL and EOMs intact bilaterally Eyes Narrative: Pinpoint pupils. Neck full ROM and supple Resp normal respiratory effort and clear to auscultation bilaterally Cardio regular rate, regular rhythm and no murmurs Rate: Negative for tachycardic GI non-tender and non-distended Auscultation: normoactive bowel sounds Palpation: soft Back/Spine no CVA tenderness General Back: other FROM Extremity normal to inspection General Extremety ED: Negative for edema, pulses abnormal or tenderness General Extremity: Negative for edema or pulses abnormal Neuro oriented x3, CN's II-XII intact bilaterally and no sensory deficits noted Scarlett Coma Scale: document GCS findings To Voice Obeys Commands Oriented 14 Sensorium / Orientation: lethargic Motor Exam: strength 5/5 throughout Psych mental status grossly normal, thought process normal, denies homicidal ideation and denies suicidal ideation Skin no rashes or lesions noted and no wounds MDM MDM MDM Narrative Medical decision making narrative: While I saw the patient, he needed repeated stimulation to remain awake and to breathe. I had nurses place an IV urgently as well as administer Narcan IV 0.4 mg and prophylactic oxygen. He woke up quickly with this, and although subsequently was somnolent, continued to breathe with a rate at 20 or more, and became a little nauseated, for which he was treated with IV zofran. He was observed for most 2 hours total. He was up early this morning, worked all day, it is around midnight, we got him up out of bed and he was able to walk okay so I think a lot of it is fatigued from that. He stable for discharge. Discharge Plan Triage Chief Complaint: Overdose ED Provider: Floyd Musa Dx/Rx/DC Orders Clinical Impression: Opiate overdose Instructions: ED Overdose, Opiate Prescriptions: No Action lorazepam [Ativan] 1 mg tablet 1 mg PO TID PRN (Reason: anxiety) Qty: 10 0RF Primary Care Provider: Brent Miranda Referrals: Brent Miranda MD [Primary Care Provider] - [facility] [Non-Staff] - As Needed (for help with addiction) Disposition Disposition: Home, Self Care
[2022-01-03] MEDS: Naloxone 0.4 MG/ML Syringe IV (22:58)
[2022-01-04] MEDS: Ondansetron 4 MG/2 ML Vial IV (00:02)
== END 2022-01-04 00:20 | disposition home or self-care (01) ==
PROVIDERS: Emergency Provider Emergency Medicine; PCP Family Medicine; Visit Provider Emergency Medicine
DX: T40.2X4A Poisoning by other opioids, undetermined, initial encounter (principal); R53.83 Other fatigue; F17.210 Nicotine dependence, cigarettes, uncomplicated
CPT/HCPCS: 96374; 96375; 99285; J2310; J2405

== ENCOUNTER 2022-01-05 06:48 | Emergency (ER) | payer OTHER, MEDICAID, SELFPAY ==
[2022-01-05 06:49] VITALS: BP 146/70; PULSE 67; RESP 14; TEMP 36.7; O2SAT 100; BMI 20.9
--- NOTE | 2022-01-05 07:36 | EDS_ITS ---
HPI History of Present Illness Chief Complaint: Nausea/Vomiting Informant: patient Onset/Context/Timing Onset: Yesterday Context: Gradual Onset Timing: Continuous Quality: Aching Location: Generalized abdomen Worsened by: Nothing Relieved by: Nothing Narrative Narrative: Patient presents with feeling lightheaded and numb. Patient states that he was seen here 2 days ago for an opiate overdose. Patient states that since that time he has been having some nausea and vomiting. Patient states he feels numb all over. Patient states he feels dehydrated. Patient admits to some diffuse abdominal pain. Patient states it is intermittent. Patient states nothing makes it worse and nothing makes it better. Patient states he was able to keep some bread down yesterday. Patient denies any hematemesis or coffee-ground emesis. Patient does admit to some diarrhea. Patient denies any melena or hematochezia. Patient denies any urinary complaints. PFSH PFSH Medical History no medical history no medical history Home Medications NK 01/05/22 [History Last Taken Unknown] Allergy/AdvReac Type Severity Reaction Status Date / Time naproxen [From Naprosyn] Allergy Rash Verified 01/05/22 06:52 Surgical History no surgical history no surgical history Social History Smoking Status: Current every day smoker tobacco type: cigarettes and cigars ROS ROS ED Constitutional Constitutional ED: Reports chills and subjective; Denies fever(s) Eyes Eyes: Denies blurry vision or change in vision ENT ENT ED: Denies rhinorrhea or sore throat Cardiovascular Cardiovascular: Denies chest pain or palpitations Respiratory/Chest Respiratory/Chest: Denies cough or dyspnea Gastrointestinal Gastrointestinal: Denies nausea or vomiting Genitourinary Genitourinary ED: Denies dysuria or hematuria Musculoskeletal Musculoskeletal: Reports back pain; Denies neck pain Integumentary Denies abscess or rash Neurologic Neurologic: Reports paresthesias and weakness; Denies headache(s) Allergic/Immunologic Allergic/Immunologic ED: Denies mouth swelling or urticaria EXAM Physical Exam Const Vital Signs: 01/05/22 06:49 Temperature 98.1 F Temperature Source Temporal Pulse Rate 67 Respiratory Rate 14 Blood Pressure 146/70 H Blood Pressure Mean 95 Pulse Ox 100 Oxygen Delivery Method Room Air Positive well nourished and well developed General Appearance ED: well developed and NAD HEENT Reports moist mucous membranes Neck supple and no JVD Resp normal respiratory effort and clear to auscultation bilaterally Cardio regular rate, regular rhythm and no murmurs GI normal to inspection, nondistended, normoactive bowel sounds Palpation: soft and tender epigastric, LLQ, RLQ, LUQ, RUQ, periumbilical and suprapubic; Negative for guarding or rebound tenderness present Extremity normal to inspection General Extremety ED: Negative for edema or tenderness General Extremity: Negative for edema Neuro oriented x3, CN's II-XII intact bilaterally and no sensory deficits noted Sensorium / Orientation: alert Motor Exam: strength 5/5 throughout Psych mental status grossly normal Skin no rashes or lesions noted MDM MDM MDM Narrative Medical decision making narrative: Patient was given IV fluids. CBC was within normal limits. Comprehensive metabolic profile shows a potassium of 3.3. The remainder was essentially within normal limits. Urinalysis does not show any evidence of urinary tract infection or hematuria. Urine specific gravity is 1.005. Patient was given a dose of potassium here. Patient was instructed to follow-up with his primary ca re physician in 5 to 7 days for reevaluation. Patient understood and was agreeable with the plan. All questions were answered. Lab Data Attestation: I reviewed the patient's lab results. Labs: Laboratory Results - last 24 hr 01/05/22 01/05/22 01/05/22 07:45 07:45 08:10 WBC 4.1 L RBC 5.49 Hgb 15.7 Hct 48.2 MCV 87.8 MCH 28.6 MCHC 32.6 RDW Std Deviation 43.9 RDW Coeff of Ruby 13.7 Plt Count 229 MPV 11.5 Immature Gran % (Auto) 0.200 Neut % (Auto) 48.2 Lymph % (Auto) 41.6 H [place] % (Auto) 7.8 Eos % (Auto) 1.7 Baso % (Auto) 0.5 Absolute Neuts (auto) 2.0 Absolute Lymphs (auto) 1.71 Nucleated RBC % 0 Sodium 138 Potassium 3.3 L Chloride 100 Carbon Dioxide 32.0 Anion Gap 6 BUN 11 Creatinine 1.04 Estim Creat Clear Calc 92.11 Est GFR (MDRD) Af Amer 107 Est GFR (MDRD) Non-Af 89 BUN/Creatinine Ratio 10.6 Glucose 103 Calcium 9.1 Total Bilirubin 0.50 AST 46 H ALT 50 Alkaline Phosphatase 89 Total Protein 7.4 Albumin 3.7 Globulin 3.7 Albumin/Globulin Ratio 1.0 Lipase 98 Urine Color Straw Urine Clarity Clear Urine pH 6.5 Ur Specific [place] 1.005 Urine Protein Negative Urine Glucose (UA) Normal Urine Ketones Negative Urine Occult Blood Negative Urine Nitrite Negative Urine Bilirubin Negative Urine Urobilinogen Normal Ur Leukocyte Esterase Negative Urine RBC 0 SEEN Urine WBC 0 SEEN Ur Squamous Epith Cells 0 SEEN Urine Bacteria 0 SEEN Urine Mucus 0 SEEN Discharge Plan Triage Chief Complaint: Nausea/Vomiting ED Provider: Yanick Mullen Dx/Rx/DC Orders Clinical Impression: Nausea and vomiting Instructions: ED Vomiting (Adult) Prescriptions: No Action NK Stand Alone Forms: ED Work / School Excuse Primary Care Provider: Brent Miranda Referrals: Brent Miranda MD [Primary Care Provider] - 5-7 Days Disposition Disposition: Home, Self Care
[2022-01-05] MEDS: 0.9% Normal Saline 1,000 ML 1000 ML IV (07:49)
[2022-01-05] MEDS: Ondansetron 4 MG/2 ML Vial IV (07:49)
[2022-01-05 07:57] LABS: Absolute Lymphocyte Count 1.71 X10^3/uL (0.83-4.51); Basophil# 0.02 X10^3/uL; Basophil% 0.5 % (0-1); Eosinophil# 0.07 X10^3/uL; Eosinophils% 1.7 % (0-5); Hematocrit 48.2 % (40-54); Hemoglobin 15.7 g/dL (13.0-16.5); Lymphocyte # 1.71 X10^3/ul (0.83-4.51); Lymphocyte % 41.6 % (19-41); Mean Corp Hgb Conc 32.6 g/dL (32-36); Mean Corpuscular Hgb 28.6 pg (27.0-32.0); Mean Corpuscular Volume 87.8 fL (80-94); Mean Platelet Vol. 11.5 fl (6.2-12.0); Monocyte# 0.32 X10^3/uL; Monocyte% 7.8 % (0-10); NRBC Flagged by Analyzer 0 % (0-5); Neutrophil # 1.98 X10^3/uL (2.7-7.7); Neutrophil % 48.2 % (47-70); Platelet Count 229 K/mm3 (150-450); RBC Distribution Width CV 13.7 % (11.6-14.6); RBC Distribution Width SD 43.9 fl (35.1-43.9); Red Blood Count 5.49 M/mm3 (4.6-6.2); White Blood Count 4.1 K/mm3 (4.4-11.0)
[2022-01-05 08:13] LABS: AST(SGOT) 46 U/L (15-37); Alanine Aminotransfer ALT/SGPT 50 U/L (16-61); Albumin, Serum 3.7 g/dL (3.2-5.0); Alkaline Phosphatase 89 U/L (45-117); Anion Gap 6 (5-15); BUN 11 mg/dL (7-18); BUN/Creat Ratio 10.6 RATIO (10-20); Calcium,Total 9.1 mg/dL (8.5-10.1); Chloride 100 mmol/L (98-107); Creatinine, Serum 1.04 mg/dL (0.70-1.30); EST Glomerular Filtration Rate 89 mL/min (>60); Est Glom Filt Rate - Afr Amer 107 mL/min (>60); Estimated Creatinine Clearance 92.11 ml/min; Globulin 3.7 g/dL (2.2-4.2); Glucose 103 mg/dL (74-106); Lipase 98 U/L (73-393); Potassium 3.3 mmol/L (3.5-5.1); Protein, Total 7.4 g/dL (6.4-8.2); Sodium Level 138 mmol/L (136-145)
[2022-01-05 08:15] LABS: Bacteria 0 SEEN /hpf (None Seen); Color, Urine Straw (Yellow); Glucose, Dipstick Normal (Normal); Ketone-Dipstick Negative (Negative); Leukocyte Esterase-Dipstick Negative /ul (Negative); Mucous, Urine 0 SEEN /hpf (<or=2+); Nitrite-Dipstick Negative (Negative); Occult Blood-Urine Negative /ul (Negative); Protein-Dipstick Negative (Negative); Red Blood Cells-Urine 0 SEEN /hpf (0-5); Specific Gravity, Urine 1.005 (1.002-1.030); Squamous Epithelial Cells - UA 0 SEEN /hpf (0-5); Urine Bilirubin Dipstick Negative (Negative); Urine Clarity Clear (Clear); Urine Urobilinogen Normal (Normal); Urine pH 6.5 (5.0 - 8.0); White Blood Cells 0 SEEN /hpf (0-5)
[2022-01-05] MEDS: Potassium Chloride Oral Tablet 20 MEQ 40 MEQ PO (08:31)
[2022-01-05 08:42] VITALS: BP 114/80; PULSE 68; RESP 14; O2SAT 98
== END 2022-01-05 08:43 | disposition home or self-care (01) ==
PROVIDERS: Emergency Provider Emergency Medicine; PCP Family Medicine; Visit Provider Emergency Medicine
DX: R11.2 Nausea with vomiting, unspecified (principal); R19.7 Diarrhea, unspecified; F17.210 Nicotine dependence, cigarettes, uncomplicated; R10.9 Unspecified abdominal pain
CPT/HCPCS: 80053; 81001; 83690; 85025; 96374; 99283; J7030; A4216; J2405

== ENCOUNTER 2024-09-13 03:09 | Emergency (ER) | payer MEDICAID, SELFPAY ==
[2024-09-13 03:10] VITALS: BP 137/88; PULSE 66; RESP 18; TEMP 36.1; O2SAT 95; BMI 21.7
--- NOTE | 2024-09-13 03:35 | EX.ED.VIS.EY ---
HPI History of Present Illness Chief Complaint: Eye Problem Informant: patient Narrative Narrative: 34-year-old male left eye discomfort for about 2 days, came in to have it evaluated, it is bothering him so much he is having trouble sleeping. It has been tearing a lot and red, but no other discharge. No fevers or chills or concurrent URI symptoms except for some runny nose that started as a result of the eye tearing. He is a contact lens wearer, soft monthly disposables. He states he lost the right one, and the left one maybe has been in for 2 weeks and he thinks this discomfort started when he was removing his contact. PFSH PFS Medical History no medical history no medical history Home Medications ?Medication ?Instructions ?Recorded ?Last Taken ?Type NK 01/05/22 Unknown History ciprofloxacin HCl 0.3 % eye drops See Rx Instructions LEFT EYE 09/13/24 Unknown Rx .COMPLEX #5 mL Allergy/AdvReac Type Severity Reaction Status Date / Time naproxen (From Naprosyn) Allergy Rash Verified 09/13/24 03:10 Surgical History no surgical history Social History Smoking Status: Current every day smoker tobacco type: cigarettes and cigars ROS ROS ED Constitutional Constitutional ED: Denies chills or fever(s) Eyes Eyes: Reports as per HPI, eye pain and photophobia ENT ENT ED: Denies ear pain, rhinorrhea or sore throat Neurologic Neurologic: Denies headache(s), paresthesias or weakness EXAM Physical Exam Const Vital Signs: 09/13/24 03:10 Temperature 97 F L Temperature Source Oral Pulse Rate 66 Respiratory Rate 18 Blood Pressure 137/88 H Blood Pressure Mean 104 Pulse Ox 95 Oxygen Delivery Method Room Air Positive well nourished and well developed General Appearance ED: well developed and NAD HEENT atraumatic; Negative for tenderness Mouth ED: Yes oral and palatal mucosa normal and Yes lips normal Mouth: oral and palatal mucosa normal and lips normal Eyes PERRL and EOMs intact bilaterally Eyes Narrative: left eye diffuse conjunctival injection. No foreign bodies beneath the lid. Resp normal respiratory effort Neuro oriented x3, CN's II-XII intact bilaterally and gait normal Sensorium / Orientation: alert Skin Lesions: no lesions Rashes: no rashes MDM MDM MDM Narrative Medical decision making narrative: Will perform slit-lamp exam after treating with topical tetracaine, which really took his pain away. On slit lamp, there is no hyphema or hypopyon, the anterior chamber is deep and quiet. On the surface of the cornea, there are multiple abnormal areas most small, some pinpoint. There is a central 1-2 mm corneal ulcer, there may be another 1 at approximately the 3 o'clock position, and the fine pinpoint stuff looked more like debris. I had them try Eric lens, he did not tolerate it well and irrigated just a little, and on reexamination with slit lamp that does look better. I do not see any linear abrasions or lacerations of the cornea and he has a negative Sukh sign. Given all of this, I have advised him to stay out of his contacts and he needs antibiotic drops, and follow-up with ophthalmology as soon as possible, given appropriate information for that. Visual acuity is 20/30 on the left, 20/200 on the right without his contact lenses in, 20/30 OU Discharge Plan Triage Chief Complaint: Eye Problem ED Provider: Floyd Musa Dx/Rx/DC Orders Clinical Impression: Corneal ulcer of left eye Instructions: ED Corneal Ulcer Prescriptions: New ciprofloxacin HCl 0.3 % drops See Rx Instructions .ROUTE .COMPLEX Qty: 5 0RF Rx Instructions: put 1-2 drps in affected eye(s) every 2hr up to 8 times/day x2days; then 4 times/day x5days No Action NK Primary Care Provider: Brent Miranda Referrals: Elodia Navarro MD [Med Staff - Active Staff] - As soon as possible (call for urgent appt, tell them you were in the ER and diagnosed w/ corneal ulcer) Print Language: [place] Disposition Disposition: Home, Self Care
[2024-09-13] MEDS: Tetracaine 0.5% Ophthalmic Bottle 3 DRP LEFT EYE (03:46)
[2024-09-13 05:23] VITALS: BP 127/91; PULSE 60; RESP 18; TEMP 36.6; O2SAT 100
== END 2024-09-13 05:24 | disposition home or self-care (01) ==
PROVIDERS: Emergency Provider Emergency Medicine; PCP Family Medicine; Visit Provider Emergency Medicine
DX: H16.002 Unspecified corneal ulcer, left eye (principal); F17.210 Nicotine dependence, cigarettes, uncomplicated; F17.290 Nicotine dependence, other tobacco product, uncomplicated; X58.XXXA Exposure to other specified factors, initial encounter
CPT/HCPCS: 99284

== ENCOUNTER 2024-09-18 02:56 | Emergency (ER) | payer MEDICAID, SELFPAY ==
[2024-09-18 02:58] VITALS: BP 114/81; PULSE 72; RESP 18; TEMP 36.5; O2SAT 97
--- OUTSIDE RECORDS SUMMARY | 2024-09-18 03:13 | XMS RPT_ITS | CCD ---
Author Organization [facility] Care Team Providers Care [employer] Assistant Manager Name Role Phone Unavailable Primary Care Provider FANTASMA Gupta Attending Unavailable Dr. Brent Miranda MD Primary Care Provider Dr. Floyd Musa MD Emergency Provider Brent Miranda Primary Care Unavailable Floyd Musa Attending Unavailable Allergies Allergy Classification Reported Allergen(s) Allergy Type Date of Onset Reaction(s) Facility (5 sources) Naproxen Drug Allergy 08-06-2021 Rash [facility] (1 source) Naproxen Drug Allergy 09-13-2024 [facility] Repository Medications Current Medications Medication Drug Class(es) Dates Sig (Normalized) Sig (Original) amoxicillin 875 mg oral tablet (1 source) Penicillin-class Antibacterial Start: 07-05-2021 End: 07-15-2021 take 1 tablet by mouth twice daily amoxicillin (AMOXIL) 875 mg tablet Take 1 tablet by mouth twice daily for 10 days. 20 tablet 0 07/05/2021 07/15/2021 Active Comment on above: Take 1 tablet by anh twice daily for 10 days. ciprofloxacin 3 mg/ml ophthalmic solution (1 source) Quinolone Antimicrobial Start: 09-13-2024 Ciprofloxacin Hcl 0.3 % drops Active 0 LEFT EYE .COMPLEX 5 0 September 13, 2024 12:00am put 1-2 drps in affected eye(s) every 2hr up to 8 times/day x2days; then 4 times/day x5days LORazepam 1 mg oral tablet (2 sources) Benzodiazepine Start: 09-27-2021 take 1 tablet by mouth three times daily Lorazepam (Ativan) 1 mg tablet Active 1 MG PO THREE TIMES A DAY September 26, 2021 11:00pm [place] (Nk) (1 source) Start: 01-05-2022 [place] (Nk) Active January 05, 2022 1:00am penicillin v potassium 500 mg oral tablet (1 source) Start: 08-06-2021 take 500 mg by mouth four times daily Penicillin V Potassium Active 500 MG PO 4 TIMES DAILY 40 August 06, 2021 9:12pm Completed/Discontinued Medications Medication Drug Class(es) Dates Sig (Normalized) Sig (Original) 24 hr amphetamine aspartate 7.5 mg / amphetamine sulfate 7.5 mg / dextroamphetamine saccharate 7.5 mg / dextroamphetamine sulfate 7.5 mg extended release oral capsule (9 sources) Central Nervous System Stimulant Start: 02-28-2016 End: 08-13-2024 take 1 capsule by mouth once daily dextroamphetamine -amphetamine (ADDERALL XR) 30 mg 24 hr capsule Take 1 capsule by mouth once daily. 30 capsule 02/28/2016 08/13/2024 Discontinued Comment on above: Take 1 capsule by [facility] once daily. clonazePAM 0.5 mg oral tablet (9 sources) Benzodiazepine Start: 09-08-2015 End: 08-13-2024 take 1 tablet by mouth every twelve hours as needed clonazePAM (KLONOPIN) 0.5 mg tablet Take 1 tablet by mouth twice daily as needed for Anxiety. 20 tablet 2 09/08/2015 08/13/2024 Discontinued Comment on above: Take 1 tablet by anh twice daily as needed for Anxiety. escitalopram 10 mg oral tablet (9 sources) Serotonin Reuptake Inhibitor Start: 12-13-2016 End: 08-13-2024 take 1 tablet by mouth once daily escitalopram oxalate (LEXAPRO) 10 mg tablet Take 1 tablet by mouth once daily. 30 tablet 12/13/2016 08/13/2024 Discontinued Comment on above: Take 1 tablet by anh once daily. Problems Problem Classification Problem Date Documented Date Episodic/Chronic Anxiety disorders (18 sources) Anxiety; Translations: [Anxiety disorder, unspecified] Onset: 02-10-2014 02-10-2014 Chronic Asthma (9 sources) Asthma; Translations: [Unspecified asthma, uncomplicated] Onset: 02-10-2014 02-10-2014 Chronic Attention-deficit, conduct, and disruptive behavior disorders (9 sources) Attention deficit hyperactivity disorder; Translations: [Attention-deficit hyperactivity disorder, unspecified type] Onset: 01-16-2005 01-24-2015 Chronic Disorders of teeth and jaw (20 sources) Infection of tooth; Translations: [Periapical abscess without sinus] Episodic Fracture of upper limb (2 sources) Closed fracture of base of fifth metacarpal; Translations: [Nondisplaced fracture of base of fifth metacarpal bone, right hand, initial encounter for closed fracture] Episodic Nausea and vomiting (2 sources) Nausea and vomiting; Translations: [Nausea with vomiting, unspecified] 01-13-2022 Episodic Other connective tissue disease (2 sources) Pain in right hand; Translations: [Pain in right hand] Episodic Other connective tissue disease (1 source) Pain in left leg; Translations: [Low back pain radiating to left leg] Onset: 08-13-2024 Episodic Other eye disorders (1 source) Corneal ulcer; Translations: [Unspecified corneal ulcer, left eye] 09-13-2024 Episodic Other injuries and conditions due to external causes (1 source) Injury of right hand; Translations: [Unspecified injury of right wrist, hand and finger(s), initial encounter] 07-24-2022 Episodic Poisoning by other medications and drugs (3 sources) Overdose of opiate; Translations: [Poisoning by unspecified narcotics, accidental (unintentional), initial encounter] 01-12-2022 Episodic Spondylosis; intervertebral disc disorders; other back problems (1 source) Low back pain; Translations: [Low back pain radiating to left leg] 08-13-2024 Episodic Sprains and strains (14 sources) Sprain of shoulder rotator cuff; Translations: [Sprain of unspecified rotator cuff capsule, initial encounter] Onset: 09-12-2007 09-12-2007 Episodic Unclassified (1 source) Low back pain radiating to left leg; Translations: [Low back pain radiating to left leg] Onset: 08-13-2024 Unclassified (1 source) call for urgent appt, tell them you were in the ER and diagnosed w/ corneal ulcer Results Test Name Value Interpretation Reference Range Facility Emergency Department Summary on 09-13-2024 Emergency Department Summary [facility] Medical Records Department [address] [place] [address] Emergency Department Summary 09/13/24 MR#: [id number] Acct: [id number] Name: BALTA DON Rep #: [id number] : 1990 34 From: Floyd Musa MD PCP: Dr. Brent Miranda MD Status:REG ER Location: ED HPI History of Present Illness Chief Complaint: Eye Problem Informant: patient Narrative Narrative: 34-year-old male left eye discomfort for about 2 days, came in to have it evaluated, it is bothering him so much he is having trouble sleeping. It has been tearing a lot and red, but no other discharge. No fevers or chills or concurrent URI symptoms except for some runny nose that started as a result of the eye tearing. He is a contact lens wearer, soft monthly disposables. He states he lost the right one, and the left one maybe has been in for 2 weeks and he thinks this discomfort started when he was removing his contact. PFSH PFSH Medical History no medical history no medical history Home Medications ???Medication ???Instructions ???Recorded ???Last Taken ???Type NK 01/05/22 Unknown History ciprofloxacin HCl 0.3 % eye drops See Rx Instructions LEFT EYE 08/26 Unknown Rx .COMPLEX #5 mL Allergy/AdvReac Type Severity Reaction Status Date / Time naproxen (From Naprosyn) Allergy Rash Verified 09/13/24 03:10 Surgical History no surgical history Social History Smoking Status: Current every day smoker tobacco type: cigarettes and cigars ROS ROS ED Constitutional Constitutional ED: Denies chills or fever(s) Eyes Eyes: Reports as per HPI, eye pain and photophobia ENT ENT ED: Denies ear pain, rhinorrhea or sore throat Neurologic Neurologic: Denies headache(s), paresthesias or weakness EXAM Physical Exam Const Vital Signs: 09/13/24 03:10 Temperature 97 F L Temperature Source Oral Pulse Rate 66 Respiratory Rate 18 Blood Pressure 137/88 H Blood Pressure Mean 104 Pulse Ox 95 Oxygen Delivery Method Room Air Positive well nourished and well developed General Appearance ED: well developed and NAD HEENT atraumatic; Negative for tenderness Mouth ED: Yes oral and palatal mucosa normal and Yes lips normal Mouth: oral and palatal mucosa normal and lips normal Eyes PERRL and EOMs intact bilaterally Eyes Narrative: left eye diffuse conjunctival injection. No foreign bodies beneath the lid. Resp normal respiratory effort Neuro oriented x3, CN's II-XII intact bilaterally and gait normal Sensorium / Orientation: alert Skin Lesions: no lesions Rashes: no rashes MDM MDM MDM Narrative Medical decision making narrative: Will perform slit-lamp exam after treating with topical tetracaine, which really took his pain away. On slit lamp, there is no hyphema or hypopyon, the anterior chamber is deep and quiet. On the surface of the cornea, there are multiple abnormal areas most small, some pinpoint. There is a central 1-2 mm corneal ulcer, there may be another 1 at approximately the 3 o'clock position, and the fine pinpoint stuff looked more like debris. I had them try Eric lens, he did not tolerate it well and irrigated just a little, and on reexamination with slit lamp that does look better. I do not see any linear abrasions or lacerations of the cornea and he has a negative Sukh sign. Given all of this, I have advised him to stay out of his contacts and he needs antibiotic drops, and follow-up with ophthalmology as soon as possible, given appropriate information for that. Visual acuity is 20/30 on the left, 20/200 on the right without his contact lenses in, 20/30 OU Discharge Plan Triage Chief Complaint: Eye Problem ED Provider: Floyd Musa Dx/Rx/DC Orders Clinical Impression: Corneal ulcer of left eye Instructions: ED Corneal Ulcer Prescriptions: New ciprofloxacin HCl 0.3 % drops See Rx Instructions .ROUTE .COMPLEX Qty: 5 0RF Rx Instructions: put 1-2 drps in affected eye(s) every 2hr up to 8 times/day x2days; then 4 times/day x5days No Action NK Primary Care Provider: Brent Miranda Referrals: Elodia Navarro MD [Med Staff - Active Staff] - As soon as possible (call for urgent appt, tell them you were in the ER and diagnosed w/ corneal ulcer) Print Language: Ecuadorean Disposition Disposition: Home, Self Care What to do if you have Problems For any increased pain, shortness of breath, bleeding, nausea or vomiting, chest pain, or any unexpected problems, contact your Primary Care Provider. Call [facility] ([phone]) or report to the closest Emergency Room. Call 911 if necessary. 09/13/24 [id number] Cosigner Signature (if applicable): CC: Dr. Brent Miranda MD S (more content not included)... [facility] Office Visit (UCWSTR ) BALTA DON ([id number]) 1990 M Date Time Provider Department 08/13/24 10:15 AM FANTASMA SOTO [facility] During your visit today, we recorded the following information about you: Temperature Pulse Respiration Blood pressure 97.6 degrees 74/minute 18/minute 145/100 Weight 66.6 kg Fantasma Soto MD 08/13/2024 10:53 AM Signed [facility] Subjective Balta Don is a 34 year old male. Patient presents with: Low Back Pain: Radiating to L hip and thigh x3 weeks Back pain: Duration: 3 weeks, woke with the pain without known injury, no prior issues with back pain Character: aching, sharp, and throbbing Location: initially left lower back (improved) Radiation: aching into the left hip and posterior lateral leg Aggravating: bending, sitting and standing too long Relieving: Pain relievers: aleve, acetaminophen Associated: hurt to move his bowels initially Pertinent negatives: Denies numbness or weakness, fever, loss of bladder or bowel control. Review of Systems Objective BP 145/100 Pulse 74 Temp 36.4 ?C (97.6 ?F) Resp 18 Wt 66.6 kg (146 lb 13.2 oz) SpO2 97% Physical Exam Constitutional: General: He is not in acute distress. Appearance: He is not toxic-appearing. Eyes: Extraocular Movements: Extraocular movements intact. Conjunctiva/sclera: Conjunctivae normal. Pupils: Pupils are equal, round, and reactive to light. Cardiovascular: Rate and Rhythm: Normal rate and regular rhythm. Heart sounds: No murmur heard. Pulmonary: Effort: Pulmonary effort is normal. Breath sounds: Normal breath sounds. Musculoskeletal: Cervical back: Neck supple. Lumbar back: No tenderness or bony tenderness. Positive left straight leg raise test. Negative right straight leg raise test. No scoliosis. Neurological: Mental Status: He is alert. Motor: No weakness. Gait: Gait normal. Deep Tendon Reflexes: Reflex Scores: Patellar reflexes are 1+ on the right side and 1+ on the left side. {ASSESSMENT/PLAN: 1. Low back pain radiating to left leg - ICD9: 724.2, ICD10: M54.50, M79.605 Provided education concerning low back pain. Continue supportive care treatments with as needed analgesia. May use ice or heat as needed. Back exercise handout provided. Core strengthening encouraged. Seek immediate evaluation for loss of bladder or bowel control, unexplained fever, or progressive weakness or numbness. Released to return to work provided. Fantasma Soto MD Differential Diagnoses - Musculoskeletal low back pain with radicular symptoms to the left leg is more likely for the following reason(s): suggested by HANDP Procedures Allergies As of Date: 08/13/2024 (No Known Allergies) Date Reviewed: 08/13/2024 Reviewed by: Josie Mathis MA - Fully Assessed Reason for Visit: Low Back Pain [126] Cmt: Radiating to L hip and thigh x3 weeks Primary Visit Diagnosis:Low back pain radiating to left leg [M54.50, M79.605] Problem List As Of Date 08/13/2024 Noted Resolved Attention deficit hyperactivity disorder (ADHD)*01/16/2005 SPRAIN ROTATOR CUFF [S43.429A] 09/12/2007 Asthma [J45.909] 02/10/2014 Anxiety [F41.9] 02/10/2014 Medications Discontinued During This Encounter Prescriptions - clonazePAM (KLONOPIN) 0.5 mg tablet (Discontinued) Reported on 07/24/2022 - dextroamphetamine-amp hetamine (ADDERALL XR) 30 mg 24 hr capsule (Discontinued) Reported on 07/24/2022 - escitalopram oxalate (LEXAPRO) 10 mg tablet (Discontinued) Reported on 08/13/2022 Level of Service: OFFICE/OUTPATIENT ESTABLISHED LOW [facility] 20 MIN [[id number]] Letter Text Encounter Status:Closed by FANTASMA SOTO on 08/13/24 Normal [facility] XR HAND GENERAL 3V PA/LAT/OB L RIGHTon 08-13-2022 [facility] XR HAND GENERAL 3V PA/LAT/OB L RIGHTon 07-24-2022 [facility] XR Hand - right PA and Later al and Obliqueon 07-24-2022 IMPRESSION: Acute fracture of the base of the fifth metacarpal. Crayon Sawyer: VADIM Transcribe Date/Time: Jul 24 2022 11:32A Dictated by : DAMARIS WILSON MD This examination was interpreted and the report reviewed and electronically signed by: DAMARIS WILSON MD on Jul 24 2022 11:33AM [facility] DIVISION OF RADIOLOGY * * *Final Report* * * DATE OF EXAM: Jul 24 2022 11:31AM WOX [id number] - XR HAND 3V PA/LAT/OBL RT / PROCEDURE REASON: Hand injury, right, initial encounter * * * * Physician Interpretation * * * * TITLE: XR HAND 3V PA/LAT/OBL RT CLINICAL INDICATION: Injury with pain TECHNIQUE: 3 view radiographic study of the right hand COMPARISON: None FINDINGS: Acute, vertical oblique fracture of the base of the fifth metacarpal with possible intra-articular extension. No additional acute osseous injury identified. DIVISION OF RADIOLOGY Provider, [facility] - 07/24/2022 * * *Final Report* * * DATE OF EXAM: Jul 24 2022 11:31AM WOX [id number] - XR HAND 3V PA/LAT/OBL RT / PROCEDURE REASON: Hand injury, right, initial encounter * * * * Physician Interpretation * * * * TITLE: XR HAND 3V PA/LAT/OBL RT CLINICAL INDICATION: Injury with pain TECHNIQUE: 3 view radiographic study of the right hand COMPARISON: None FINDINGS: Acute, vertical oblique fracture of the base of the fifth metacarpal with possible intra-articular extension. No additional acute osseous injury identified. IMPRESSION IMPRESSION: Acute fracture of the base of the fifth metacarpal. Crayon Sawyer: PSCB Transcribe Date/Time: Jul 24 2022 11:32A Dictated by : DAMARIS WILSON MD This examination was interpreted and the report reviewed and electronically signed by: DAMARIS WILSON MD on Jul 24 2022 11:33AM EST [facility] Radiology Study observation (narrative) [facility] XR Hand - right PA and Later al and ObliqueOrdered By: Ccf Provider on 07-24-2022 [facility] Absolute lymphocyte counton 01-05-2022 Lymphocytes Auto (Unsp spec) [#/Vol] 1.71 10*3/uL 0.83-4.51 [facility] Work Phone: Basophil percentageon 2021 Basophil percentage 0 SEEN /hpf 0-5 [facility] Work Phone: Basophils/100 WBC (Bld) 0.5 % 0-1 [facility] Work Phone: Bilirubin [Mass/Vol] 0.50 mg/dL 0.20-1.00 [facility] Work Phone: Comment on above: For patients on eltr ombopag therapy, use of Dimension [place] TBIL is not recommended. Chloride [Moles/Vol] 100 mmol/L 98-107 [facility] Work Phone: Eosinophils/100 WBC (Bld) 1.7 % 0-5 [facility] Work Phone: Glucose [Mass/Vol] 103 mg/dL 74-106 [facility] Work Phone: Comment on above: Fasting Glucose resu lt from 100 to 125 mg/dL suggests IMPAIRED HOMEOSTASIS per A.D.A. criteria. Neutrophils (Bld) [#/Vol] 2.0 10*3/uL 2.0-7.7 [facility] Work Phone: Neutrophils/100 WBC (Bld) 48.2 % 47-70 [facility] Work Phone: Potassium [Moles/Vol] 3.3 mmol/L 3.5-5.1 [facility] Work Phone: Comment on above: Moderate Hemolysis, Result may be falsely increased. Protein [Mass/Vol] 7.4 g/dL 6.4-8.2 [facility] Work Phone: Sodium [Moles/Vol] 138 mmol/L 136-145 [facility] Work Phone: WBC (Bld) [#/Vol] 4.1 10*3/uL 4.4-11.0 [facility] Work Phone: Bilirubin Test strip Ql (U)o n 01-05-2022 Bilirubin Ql (U) Negative Negative [facility] Work Phone: Blood erythrocytes count (nu mber/volume)on 01-05-2022 RBC (Bld) [#/Vol] 5.49 10*6/uL 4.6-6.2 [facility] Work Phone: Blood hemoglobin measurement (mass/volume)on 01-05-2022 Hemoglobin (Bld) [Mass/Vol] 15.7 g/dL 13.0-16.5 [facility] Work Phone: Blood lymphocytes/100 leukoc yteson 01-05-2022 Lymphocytes/100 WBC (Bld) 41.6 % 19-41 [facility] Work Phone: Blood monocytes/100 leukocyt eson 01-05-2022 Monocytes/100 WBC (Bld) 7.8 % 0-10 [facility] Work Phone: Blood platelet mean volumeon 01-05-2022 Platelet mean volume (Bld) [Entitic vol] 11.5 fL 6.2-12.0 [facility] Work Phone: Determination of erythrocyte mean corpuscular volume (MCV)on 01-05-2022 MCV (RBC) [Entitic vol] 87.8 fL 80-94 [facility] Work Phone: Hematocrit Auto (Bld) [Volum e fraction]on 01-05-2022 Hematocrit (Bld) [Volume fraction] 48.2 % 40-54 [facility] Work Phone: Ketones Test strip Ql (U)on 01-05-2022 Ketones Ql (U) Negative Negative [facility] Work Phone: Laboratory - Chemistry and C hemistry - challengeon 01-05-2022 ALP [Catalytic activity/Vol] 89 U/L 45-117 [facility] Work Phone: ALT [Catalytic activity/Vol] 50 U/L 16-61 [facility] Work Phone: CO2 [Moles/Vol] 32.0 mmol/L 21.0-32.0 [facility] Work Phone: Globulin (S) [Mass/Vol] 3.7 g/dL 2.2-4.2 [facility] Work Phone: Lipase [Catalytic activity/Vol] 98 U/L 73-393 [facility] Work Phone: Urea nitrogen/Creatinine [Mass ratio] 10.6 mg/mg 10-20 [facility] Work Phone: Laboratory - Hematology and Cell countson 01-05-2022 Erythrocyte distribution width (RBC) [Entitic vol] 43.9 fL 35.1-43.9 [facility] Work Phone: Erythrocyte distribution width (RBC) [Ratio] 13.7 % 11.6-14.6 [facility] Work Phone: Immature granulocytes/100 WBC (Bld) 0.200 % 0.0-0.9 [facility] Work Phone: Comment on above: IG% - Immature Granu locytes (promyelocytes, myelocytes and metamyelocytes) > 1% indicates that a LEFT SHIFT is Present. MCH (RBC) [Entitic mass] 28.6 pg 27.0-32.0 [facility] Work Phone: Nucleated RBC/100 WBC (Bld) [Ratio] 0 % 0-5 [facility] Work Phone: MCHC Auto (RBC) [Mass/Vol]on 01-05-2022 MCHC (RBC) [Mass/Vol] 32.6 g/dL 32-36 [facility] Work Phone: Mucus LM Ql (Urine sed)on Mucus Ql (Urine sed) 0 SEEN /hpf [facility] Work Phone: Nitrite Test strip Ql (U)on 01-05-2022 Nitrite Ql (U) Negative Negative [facility] Work Phone: No Panel Informationon 01-05 Estimated Creatinine Clearance Calc 92.11 ml/min [facility] Work Phone: Estimated GFR (MDRD) Amer 107 mL/min >60 [facility] Work Phone: Comment on above: GFR Calc Estimated GFR (MDRD) Non-Af Amer 89 mL/min >60 [facility] Work Phone: Comment on above: Non- GFR Calc Platelets bldon 01-05-2022 Platelets (Bld) [#/Vol] 229 10*3/uL 150-450 [facility] Work Phone: Protein Test strip Ql (U)on 01-05-2022 Protein Ql (U) Negative Negative [facility] Work Phone: Serum or plasma albumin michelle urement (mass/volume)on 01-05-2022 Albumin [Mass/Vol] 3.7 g/dL 3.2-5.0 [facility] Work Phone: Serum or plasma albumin/glob ulin mass ratioon 01-05-2022 Albumin/Globulin [Mass ratio] 1.0 {ratio} 0.9-2.4 [facility] Work Phone: Serum or plasma calcium michelle urement (mass/volume)on 01-05-2022 Calcium [Mass/Vol] 9.1 mg/dL 8.5-10.1 [facility] Work Phone: Serum or plasma creatinine m easurement (mass/volume)on 01-05-2022 Creatinine [Mass/Vol] 1.04 mg/dL 0.70-1.30 [facility] Work Phone: Comment on above: The validity of the calculated GFR & GFRAA in patients over 70 years has not been determined. Clinical correlation is essential. Serum or plasma urea nitroge n measurement (mass/volume)on 01-05-2022 Urea nitrogen [Mass/Vol] 11 mg/dL 7-18 [facility] Work Phone: Squamous epithelial cells de tection in urine sediment by light microscopyon 01-05-2022 Epithelial cells.squamous LM Ql (Urine sed) 0 SEEN /hpf 0-5 [facility] Work Phone: Thin prep Papanicolaou smear with manual screeningon 01-05-2022 Thin prep Papanicolaou smear with manual screening 46 U/L 15-37 [facility] Work Phone: Comment on above: Moderate Hemolysis, Result may be falsely increased. Thin prep Papanicolaou smear with manual screening 6 5-15 [facility] Work Phone: Urine blood detectionon 12-26 RBC Ql (U) Negative Negative [facility] Work Phone: RBC Ql (U) 0 SEEN /hpf 0-5 [facility] Work Phone: Urine clarityon 01-05-2022 Clarity (U) Clear Clear [facility] Work Phone: Urine color determinationon 01-05-2022 Color (U) Straw Yellow [facility] Work Phone: Urine glucose detectionon Glucose Ql (U) Normal mg/dl Normal [facility] Work Phone: Urine leukocyte esterase det ection by dipstickon 01-05-2022 Leukocyte esterase Test strip Ql (U) Negative Negative [facility] Work Phone: Urine pHon 01-05-2022 pH (U) 6.5 [pH] 5.0 - 8.0 [facility] Work Phone: Urine sediment bacteria coun t by microscopy (number/high power field)on 01-05-2022 Bacteria LM.HPF (Urine sed) [#/Area] 0 /[HPF] None Seen [facility] Work Phone: Urine specific gravity measu rementon 01-05-2022 Specific gravity (U) [Rel density] 1.005 1.002-1.030 [facility] Work Phone: Urobilinogen Auto test strip Ql (U)on 01-05-2022 Urobilinogen Ql (U) Normal mg/dl Normal [facility] Work Phone: XR Shoulder - left 3 Viewson 04-07-2021 IMPRESSION: No acute process. Crayon Sawyer: VADIM Transcribe Date/Time: Apr 07 2021 1:05P Dictated by : YOLANDA CONNOR MD This examination was interpreted and the report reviewed and electronically signed by: YOLANDA CONNOR MD on Apr 07 2021 1:05PM [facility] DIVISION OF RADIOLOGY * * *Final Report* * * DATE OF EXAM: Apr 07 2021 1:04PM WOX 5252 - XR SHLDR >/=3V AP/NETTE AP/OTHR LT / PROCEDURE REASON: Acute pain of left shoulder * * * * Physician Interpretation * * * * EXAMINATION: XR SHLDR >/=3V AP/NETTE AP/OTHR LT HISTORY: Diffuse left shoulder pain after feeling a pop today. Acute pain of left shoulder. TECHNIQUE: XR SHLDR >/=3V AP/NETTE AP/OTHR LT Laterality: LEFT Number of different views (projections): 3 M: XB_1 COMPARISON: There are no prior relevant studies for comparison. RESULT: 3 views of the left shoulder show no acute osseous, articular or soft tissue abnormality. Joint spaces are preserved. DIVISION OF RADIOLOGY Provider, [facility] - 04/07/2021 * * *Final Report* * * DATE OF EXAM: Apr 07 2021 1:04PM WOX 5252 - XR SHLDR >/=3V AP/NETTE AP/OTHR LT / PROCEDURE REASON: Acute pain of left shoulder * * * * Physician Interpretation * * * * EXAMINATION: XR SHLDR >/=3V AP/NETTE AP/OTHR LT HISTORY: Diffuse left shoulder pain after feeling a pop today. Acute pain of left shoulder. TECHNIQUE: XR SHLDR >/=3V AP/NETTE AP/OTHR LT Laterality: LEFT Number of different views (projections): 3 M: XB_1 COMPARISON: There are no prior relevant studies for comparison. RESULT: 3 views of the left shoulder show no acute osseous, articular or soft tissue abnormality. Joint spaces are preserved. IMPRESSION IMPRESSION: No acute process. Crayon Sawyer: PSCB Transcribe Date/Time: Apr 07 2021 1:05P Dictated by : YOLANDA CONNOR MD This examination was interpreted and the report reviewed and electronically signed by: YLOANDA CONNOR MD on Apr 07 2021 1:05PM EST [facility] Radiology Study observation (narrative) [facility] XR Shoulder - left 3 ViewsOr dered By: [facility] Provider on 04-07-2021 [facility] Vital Signs Date Time Vital Sign Value Performing Clinician Facility 09-13-2024 05:23-0400 Body temperature 98 [degF] Dr. Brent Miranda MD Work Phone: 5(411)[phone] [place] [address] 09-13-2024 05:23-0400 Diastolic blood pressure 91 mm[Hg] Dr. Brent Miranda MD Work Phone: 1(060)[phone] [place] [address] 09-13-2024 05:23-0400 Heart rate 60 /min Dr. Brent Miranda MD Work Phone: 5(545)[phone] [place] [address] 09-13-2024 05:23-0400 Respiratory rate 18 /min Dr. Brent Miranda MD Work Phone: 8([phone])[phone] [place] [address] 09-13-2024 05:23-0400 SaO2% (BldA) [Mass fraction] 100 % Dr. Brent Miranda MD Work Phone: 3(109)[phone] [place] [address] 09-13-2024 05:23-0400 Systolic blood pressure 127 mm[Hg] Dr. Brent Miranda MD Work Phone: 4(378)[phone] [place] [address] 09-13-2024 03:10-0400 Body height 172.[address] Brent Miranda MD Work Phone: 2(532)[phone] [place] [address] 09-13-2024 03:10-0400 Body mass index (BMI) [Ratio] 21.7 kg/m2 Dr. Brent Miranda MD Work Phone: 1(415)[phone] [place] [address] 09-13-2024 03:10-0400 Body weight 64.[address] Brent Miranda MD Work Phone: [facility] 08-13-2024 10:20-0400 Body temperature 97.59 [degF] Fantasma Soto MD Work Phone: [facility] 08-13-2024 10:20-0400 Body weight 66.6 kg Fantasma Soto MD Work Phone: [facility] 08-13-2024 10:20-0400 Diastolic blood pressure 100 mm[Hg] Fantasma Soto MD Work Phone: [facility] 08-13-2024 10:20-0400 Heart rate 74 /min Fantasma Soto MD Work Phone: [facility] 08-13-2024 10:20-0400 Respiratory rate 18 /min Fantasma Soto MD Work Phone: [facility] 08-13-2024 10:20-0400 SaO2% (BldA) [Mass fraction] 97 % Fantasma Soto MD Work Phone: [facility] 08-13-2024 10:20-0400 Systolic blood pressure 145 mm[Hg] Fantasma Soto MD Work Phone: [facility] 07-24-2022 10:32-0400 Body temperature 98.29 [degF] Cecy Athy PA-C Work Phone: [facility] 07-24-2022 10:32-0400 Body weight 63.05 kg Cecy Athy PA-C Work Phone: [facility] 07-24-2022 10:32-0400 Diastolic blood pressure 74 mm[Hg] Cecy Athy PA-C Work Phone: [facility] 07-24-2022 10:32-0400 Heart rate 88 /min Cecy Athy PA-C Work Phone: [facility] 07-24-2022 10:32-0400 Respiratory rate 16 /min Cecy Athy PA-C Work Phone: [facility] 07-24-2022 10:32-0400 SaO2% (BldA) [Mass fraction] 95 % Cecy Torres PA-C Work Phone: [facility] 07-24-2022 10:32-0400 Systolic blood pressure 122 mm[Hg] Cecy Torres PA-C Work Phone: [facility] 01-05-2022 08:42-0500 Diastolic blood pressure 80 mm[Hg] [facility] Work Phone: 01-05-2022 08:42-0500 Heart rate 68 /min [facility] Work Phone: 01-05-2022 08:42-0500 Respiratory rate 14 /min [facility] Work Phone: 01-05-2022 08:42-0500 SaO2% (BldA) [Mass fraction] 98 % [facility] Work Phone: 01-05-2022 08:42-0500 Systolic blood pressure 114 mm[Hg] [facility] Work Phone: 01-05-2022 06:49-0500 Body height 172.72 cm [facility] Work Phone: 01-05-2022 06:49-0500 Body mass index (BMI) [Ratio] 20.9 kg/m2 [facility] Work Phone: 01-05-2022 06:49-0500 Body temperature 98.1 [degF] [facility] Work Phone: 01-05-2022 06:49-0500 Body weight 62.7 kg [facility] Work Phone: 01-03-2022 22:17-0500 Body height 172.72 cm [facility] Work Phone: 01-03-2022 22:17-0500 Body mass index (BMI) [Ratio] 24.3 kg/m2 [facility] Work Phone: 01-03-2022 22:17-0500 Body temperature 96 [degF] [facility] Work Phone: 01-03-2022 22:17-0500 Body weight 72.57 kg [facility] Work Phone: 01-03-2022 22:17-0500 Diastolic blood pressure 73 mm[Hg] [facility] Work Phone: 01-03-2022 22:17-0500 Heart rate 88 /min [facility] Work Phone: 01-03-2022 22:17-0500 Respiratory rate 16 /min [facility] Work Phone: 01-03-2022 22:17-0500 SaO2% (BldA) [Mass fraction] 100 % [facility] Work Phone: 01-03-2022 22:17-0500 Systolic blood pressure 125 mm[Hg] [facility] Work Phone: 09-27-2021 06:21-0400 Body height 175.26 cm [facility] Work Phone: 09-27-2021 06:21-0400 Body mass index (BMI) [Ratio] 22.1 kg/m2 [facility] Work Phone: 09-27-2021 06:21-0400 Body temperature 98.1 [degF] [facility] Work Phone: 09-27-2021 06:21-0400 Body weight 67.9 kg [facility] Work Phone: 09-27-2021 06:21-0400 Diastolic blood pressure 94 mm[Hg] [facility] Work Phone: 09-27-2021 06:21-0400 Heart rate 60 /min [facility] Work Phone: 09-27-2021 06:21-0400 Respiratory rate 17 /min [facility] Work Phone: 09-27-2021 06:21-0400 SaO2% (BldA) [Mass fraction] 100 % [facility] Work Phone: 09-27-2021 06:21-0400 Systolic blood pressure 127 mm[Hg] [facility] Work Phone: 08-06-2021 20:53-0400 Body height 175.26 cm [facility] Work Phone: 08-06-2021 20:53-0400 Body mass index (BMI) [Ratio] 22.1 kg/m2 [facility] Work Phone: 08-06-2021 20:53-0400 Body temperature 96.9 [degF] [facility] Work Phone: 08-06-2021 20:53-0400 Body weight 68.03 kg [facility] Work Phone: 08-06-2021 20:53-0400 Diastolic blood pressure 85 mm[Hg] [facility] Work Phone: 08-06-2021 20:53-0400 Heart rate 95 /min [facility] Work Phone: 08-06-2021 20:53-0400 Respiratory rate 16 /min [facility] Work Phone: 08-06-2021 20:53-0400 SaO2% (BldA) [Mass fraction] 97 % [facility] Work Phone: 08-06-2021 20:53-0400 Systolic blood pressure 129 mm[Hg] [facility] Work Phone: 07-05-2021 13:08-0400 Body temperature 97.59 [degF] Cecy Athy PA-C Work Phone: [facility] 07-05-2021 13:08-0400 Body weight 63.32 kg Cecy Athy PA-C Work Phone: [facility] 07-05-2021 13:08-0400 Diastolic blood pressure 78 mm[Hg] Cecy Athy PA-C Work Phone: [facility] 07-05-2021 13:08-0400 Heart rate 93 /min Cecy Athy PA-C Work Phone: [facility] 07-05-2021 13:08-0400 Respiratory rate 20 /min Cecy Athy PA-C Work Phone: [facility] 07-05-2021 13:08-0400 SaO2% (BldA) [Mass fraction] 100 % Cecy Athy PA-C Work Phone: [facility] 07-05-2021 13:08-0400 Systolic blood pressure 119 mm[Hg] Cecy Athy PA-C Work Phone: [facility] Encounters Encounter Date Encounter Type Care Provider Facility Start: 09-13-2024 End: 09-13-2024 Emergency department patient visit Dr. Brent Miranda MD Work Phone: -Emergency Department Work Phone: Start: 08-13-2024 End: 08-13-2024 Office outpatient visit 15 minutes Fantasma Soto MD Work Phone: [facility] Comment on above: Low back pain radiat ing to left leg (Primary Dx) Start: 08-13-2024 End: 08-13-2024 ambulatory FANTASMA SOTO Facility:[facility] Start: 08-13-2022 End: 08-13-2022 Patient encounter procedure Floyd Mari MD Work Phone: Orthopaedics Comment on above: Closed nondisplaced fracture of base of fifth metacarpal bone of right hand, initial encounter (Primary Dx) Start: 08-13-2022 End: 08-13-2022 Subsequent hospital visit by physician [facility] Seth Gamble Work Phone: Radiology Comment on above: Right hand pain [M79 .641] Start: 08-01-2022 Orders Only Floyd Mari MD Work Phone: Orthopaedics Comment on above: Right hand pain (Karlee martinez Dx) Start: 07-24-2022 End: 07-24-2022 Subsequent hospital visit by physician [facility] Seth Work Phone: Radiology Comment on above: Hand injury, right, initial encounter [S69.91XA] Start: 07-24-2022 End: 07-24-2022 Patient encounter procedure Cecy Torres PA-C Work Phone: [facility] Comment on above: Nondisplaced fractur e of base of fifth metacarpal bone, right hand, initial encounter for closed fracture (Primary Dx) Start: 01-05-2022 End: 01-05-2022 [facility] Start: 01-04-2022 Telephone encounter No Pcp Alfredito Reeder [facility] Comment on above: Vomiting Start: 01-03-2022 End: 01-04-2022 [facility] Start: 09-27-2021 End: 09-27-2021 [facility] Start: 08-06-2021 End: 08-06-2021 [facility] Start: 07-05-2021 End: 07-05-2021 Patient encounter procedure Cecy Torres PA-C Work Phone: [facility] Comment on above: Dental infection (Pr imary Dx) Start: 04-07-2021 End: 04-07-2021 Subsequent hospital visit by physician [facility] Seth Work Phone: Radiology Comment on above: Acute pain of left s houlder [M25.512] Procedures Date Procedure Procedure Detail Performing Clinician Start: 08-13-2022 Radex hand minimum 3 views Floyd Mari MD Work Phone: Start: 07-24-2022 Radex hand minimum 3 views Cecy Torres PA-C Work Phone: Start: 04-07-2021 Radex shoulder compl ete minimum 2 views Александр Chand APRN.CNP Work Phone: Start: 09-08-2015 Adult depression screening assessment Cecy Torres PA-C Work Phone: Plan of Treatment Date Care Activity Detail Author Start: 10-26-2024 Influenza vaccination Influenz a Vaccine (Season Ended) [facility] Start: 09-13-2024 [facility] Start: 10-27-2023 Covid-19 Vaccine ( season) Covid-19 Vaccine ( season) [facility] Start: 10-27-2023 Covid-19 Vaccine ( season) Covid-19 Vaccine ( season) [facility] Start: 10-27-2023 Influenza vaccination Influenza Vacc ine (#1) [facility] Start: 10-14-2023 Urine microalbumin profile DTaP,Tdap,Td Vaccine (7 - Td or Tdap) [facility] Start: 10-26-2022 Influenza vaccination C [facility] Start: 02-25-2022 DEPRESSION ASSESSMENT DEPRESSION ASS [facility] Start: 10-27-2021 ANNUAL PCP TEAM PLASTER MECHANIC WILLY DISEASE VISIT ANNUAL PCP TEAM CHRONIC DISEASE VISIT [facility] Start: 10-26-2021 Influenza vaccination C [facility] Start: 02-25-2021 DEPRESSION ASSESSMENT DEPRESSION ASS [facility] Start: 09-07-2016 Adult depression screening assessment DEPRESSION SCREENING [facility] Start: 2010 ONE PNEUMOVAX PRIOR TO AGE 65 ONE PNEUMOVAX PRIOR TO AGE 65 [facility] Start: 2010 Pneumococcal vaccination Pneumococcal Vaccine (1 of 2 - PCV) [facility] Start: 2009 [facility]: 2009 HEPATITIS C SCREENING HEPATITIS C [facility] Start: 2009 Hepatitis C screening Hepatitis C [facility] Start: 2009 HIV SCREENING HIV SCREENING [facility] Start: 2009 HIV screening HIV Screening [facility] Start: 2009 SPIROMETRY SPIROMETRY [facility] Start: 08-26-2004 Urine microalbumin profile DTAP,TDAP,TD (6 - Tdap) [facility] Start: 1997 PNEUMOCOCCAL (1 - PCV) PNEUMOCOCCAL (1 - PCV) [facility] Start: 1997 Pneumococcal vaccination [facility] Start: 02-14-1996 COVID-19 VACCINE (#1) COVID-19 VACCI NE (#1) [facility] Start: 1991 COVID-19 VACCINE (#1) COVID-19 VACCI NE (#1) [facility] Patient Education [facility] Work Phone: Patient referral [facility] Work Phone: End: 08-31-2023 XR HAND GENERAL 3V PA/LAT/OBL RIGHT XR HAND GENERAL 3V PA/LAT/OBL RIGHT Radiology Routine Right hand pain 1 Occurrences starting 08/01/2022 until 08/31/2023 [facility] Work Phone: Comment on above: 1 Occurrences starti ng 08/01/2022 until 08/31/2023 [facility] Immunizations Immunization Date Immunization Notes Care Provider Marium vigil 10-13-2013 tetanus toxoid, redu carmen diphtheria toxoid, and acellular pertussis vaccine, adsorbed [facility] 09-09-2006 varicella virus vaccine Cecy Torres [employer] Work Phone: [facility] Work Phone: 08-31-2005 Meningococcal, MCV4, unspecified conjugate formulation(groups A, C, Y and W-135) Cecy Torres [employer] Work Phone: [facility] Work Phone: 08-25-2004 tetanus and diphther ia toxoids, adsorbed, preservative free, for adult use (2 Lf of tetanus toxoid and 2 Lf of diphtheria toxoid) [facility] Work Phone: [facility] Work Phone: 08-03-2003 measles, mumps and rubella virus vaccine Cecy [employer]ISON[employer] Work Phone: [facility] Work Phone: 09-01-2002 hepatitis B vaccine, pediatric or pediatric/adolescent dosage Cecy GARRISON[employer] Work Phone: [facility] Work Phone: 03-28-2001 hepatitis B vaccine, pediatric or pediatric/adolescent dosage Cecy GARRISON[employer] Work Phone: [facility] Work Phone: 06-06-2000 hepatitis B vaccine, pediatric or pediatric/adolescent dosage Cecy Morenoy PA-C Work Phone: [facility] Work Phone: 07-02-1996 diphtheria, tetanus toxoids and acellular pertussis vaccine Cecy Athy PA-C Work Phone: [facility] Work Phone: 07-02-1996 trivalent poliovirus vaccine, live, oral Cecy Athy PA-C Work Phone: [facility] 11-02-1992 measles, mumps and rubella virus vaccine Cecy Athy PA-C Work Phone: [facility] Work Phone: 09-01-1992 diphtheria, tetanus toxoids and pertussis vaccine Cecy Athy PA-C Work Phone: [facility] Work Phone: 09-01-1992 haemophilus influenz ae type b vaccine, HbOC conjugate Cecy Athy PA-C Work Phone: [facility] Work Phone: 09-01-1992 trivalent poliovirus vaccine, live, oral Cecy Athy PA-C Work Phone: [facility] 04-26-1992 diphtheria, tetanus toxoids and pertussis vaccine Cecy Athy PA-C Work Phone: [facility] Work Phone: 04-26-1992 haemophilus influenz ae type b vaccine, HbOC conjugate Cecy Athy PA-C Work Phone: [facility] Work Phone: 02-20-1992 diphtheria, tetanus toxoids and pertussis vaccine Cecy Athy PA-C Work Phone: [facility] Work Phone: 02-20-1992 haemophilus influenz ae type b vaccine, HbOC conjugate Cecy Athy PA-C Work Phone: [facility] Work Phone: 02-20-1992 trivalent poliovirus vaccine, live, oral Cecy Torres PA-C Work Phone: [facility] 1991 diphtheria, tetanus toxoids and pertussis vaccine Cecy GARRISON-C Work Phone: [facility] Work Phone: 1991 haemophilus influenz ae type b vaccine, HbOC conjugate Cecy GARRISON-C Work Phone: [facility] Work Phone: 1991 trivalent poliovirus vaccine, live, oral Cecy GARRISON[employer] Work Phone: [facility] 1991 tuberculin skin test ; purified protein derivative solution, intradermal [facility] Work Phone: [facility] Payers Date Payer Category Payer Private Health Insurance [id number] 2024 Self-pay [id number] 2023 Medicaid [id number] Member [place] bscriber Plan / Payer (Effective 2023-Present) Name: Balta Don Blaze Relation to Subscriber: Self Name: FlroenciaBalta winkler Blaze Payer ID: [id number] (NAIC) Type: Medicaid Address: [address] [address] [place] [address] [id number] 2023 Medicaid [id number] 2021 Private Health Insurance [facility] [employer] [id number] 2021-Present [phone] [address] [place] [address] PPO [id number] 2021 Private Health Insurance [id number] Medicaid [id number] Private Health Insurance [id number] Unknown [id number] Unknown [id number] Social History Date Type Detail Facility Start: 05-13-2014 End: 09-13-2024 Tobacco smoking status NHIS Smokes tobacco daily [facility] History of tobacco use Cigarette Smoker [facility] Start: 05-13-2014 End: 08-13-2022 Cigarettes smoked current (pack per day) - Reported 0.5 [facility] Start: 05-13-2014 End: 10-27-2020 Tobacco use and exposure Smokeless tobacco non-user [facility] Start: 07-05-2021 End: 08-13-2024 Alcohol intake Current non-drinker of alcohol (finding) [facility] Start: 1990 Sex Assigned At Not on file C [facility] Start: 08-06-2021 End: 01-05-2022 Tobacco smoking status [facility] Unknown if ever smoked [facility] Work Phone: Start: 1990 Sex Assigned At Male [facility] History of tobacco use Cigar Smoker [facility] Start: 08-13-2022 Tobacco use and exposure User of smokeless tobacco [facility] History of tobacco use Chews Tobacco [facility] Start: 08-13-2022 End: 08-13-2024 Tobacco use panel [facility] National Score (1-10 0), lower number is lower risk 91 [facility] Start: 03-08-2021 End: 04-07-2021 Exposure to SARS-CoV-2 (event) Not sure [facility] Functional Status Date Assessment Result Facility 05-13-2014 Are you deaf, or do you have serious difficulty hearing No 05/13/2014 2:43 PM Kylie Tobar MA No [facility] 05-13-2014 Are you blind, or do you have serious difficulty seeing, even when wearing glasses No 05/13/2014 2:43 PM EDT Kylie Chappell MA No [facility] 05-13-2014 Do you have serious difficulty walking or climbing stairs No 05/13/2014 2:43 PM EDT Kylie Chappell MA No [facility] 05-13-2014 Do you have difficul ty dressing or bathing No 05/13/2014 2:43 PM EDT Kylie Chappell MA No [facility] 05-13-2014 Because of a physica l, mental, or emotional condition, do you have difficulty doing errands alone such as visiting a physician's office or shopping No 05/13/2014 2:43 PM EDT Kylie Chappell MA No [facility] Mental Status Date Assessment Result Facility 01-03-2022 Cognitive function Level Of Cons ciousness Drowsy;Lethargic;Responds to vocal stimuli [facility] Work Phone: 05-13-2014 Because of a physica l, mental, or emotional condition, do you have serious difficulty concentrating, remembering, or making decisions Yes 05/13/2014 2:43 PM EDT Kylie Chappell MA Yes [facility] Clinical Notes 04-07-2021 to 09-13-2024 Fantasma Soto MD - 08/13/2024 10:30 AM Floyd Perez MD - 08/13/2022 8:24 AM María Elena Muhammad RT(R) - 08/13/2022 8:20 AM Ritesh Torres PA-C - 07/24/2022 12:50 PM EDT Note Date & Type Note Facility 09-13-2024 Discharge summary [facility] 08-13-2024 Note HNO ID: [id number] Author: FANTASMA SOTO MD Service: ? Author Type: Physician Type: Progress Notes Filed: 08/13/2024 10:53 Note Text: [facility] Subjective Balta Don is a 34 year old male. Patient presents with: Low Back Pain: Radiating to L hip and thigh x3 weeks Back pain: Duration: 3 weeks, woke with the pain without known injury, no prior issues with back pain Character: aching, sharp, and throbbing Location: initially left lower back (improved) Radiation: aching into the left hip and posterior lateral leg Aggravating: bending, sitting and standing too long Relieving: Pain relievers: aleve, acetaminophen Associated: hurt to move his bowels initially Pertinent negatives: Denies numbness or weakness, fever, loss of bladder or bowel control. Review of Systems Objective BP 145/100 Pulse 74 Temp 36.4 ?C (97.6 ?F) Resp 18 Wt 66.6 kg (146 lb 13.2 oz) SpO2 97% Physical Exam Constitutional: General: He is not in acute distress. Appearance: He is not toxic-appearing. Eyes: Extraocular Movements: Extraocular movements intact. Conjunctiva/sclera: Conjunctivae normal. Pupils: Pupils are equal, round, and reactive to light. Cardiovascular: Rate and Rhythm: Normal rate and regular rhythm. Heart sounds: No murmur heard. Pulmonary: Effort: Pulmonary effort is normal. Breath sounds: Normal breath sounds. Musculoskeletal: Cervical back: Neck supple. Lumbar back: No tenderness or bony tenderness. Positive left straight leg raise test. Negative right straight leg raise test. No scoliosis. Neurological: Mental Status: He is alert. Motor: No weakness. Gait: Gait normal. Deep Tendon Reflexes: Reflex Scores: Patellar reflexes are 1+ on the right side and 1+ on the left side. {ASSESSMENT/PLAN: 1. Low back pain radiating to left leg - ICD9: 724.2, ICD10: M54.50, M79.605 Provided education concerning low back pain. Continue supportive care treatments with as needed analgesia. May use ice or heat as needed. Back exercise handout provided. Core strengthening encouraged. Seek immediate evaluation for loss of bladder or bowel control, unexplained fever, or progressive weakness or numbness. Released to return to work provided. Fantasma Soto MD Differential Diagnoses - Musculoskeletal low back pain with radicular symptoms to the left leg is more likely for the following reason(s): suggested by HANDP Procedures [facility] 08-13-2024 History of Present illness Narrative [facility] Subjective Balta Don is a 34 year old male. Patient presents with: Low Back Pain: Radiating to L hip and thigh x3 weeks Back pain: Duration: 3 weeks, woke with the pain without known injury, no prior issues with back pain Character: aching, sharp, and throbbing Location: initially left lower back (improved) Radiation: aching into the left hip and posterior lateral leg Aggravating: bending, sitting and standing too long Relieving: Pain relievers: aleve, acetaminophen Associated: hurt to move his bowels initially Pertinent negatives: Denies numbness or weakness, fever, loss of bladder or bowel control. Review of Systems Objective BP 145/100 Pulse 74 Temp 36.4 C (97.6 F) Resp 18 Wt 66.6 kg (146 lb 13.2 oz) SpO2 97% Physical Exam Constitutional: General: He is not in acute distress. Appearance: He is not toxic-appearing. Eyes: Extraocular Movements: Extraocular movements intact. Conjunctiva/sclera: Conjunctivae normal. Pupils: Pupils are equal, round, and reactive to light. Cardiovascular: Rate and Rhythm: Normal rate and regular rhythm. Heart sounds: No murmur heard. Pulmonary: Effort: Pulmonary effort is normal. Breath sounds: Normal breath sounds. Musculoskeletal: Cervical back: Neck supple. Lumbar back: No tenderness or bony tenderness. Positive left straight leg raise test. Negative right straight leg raise test. No scoliosis. Neurological: Mental Status: He is alert. Motor: No weakness. Gait: Gait normal. Deep Tendon Reflexes: Reflex Scores: Patellar reflexes are 1+ on the right side and 1+ on the left side. {ASSESSMENT/PLAN: 1. Low back pain radiating to left leg - ICD9: 724.2, ICD10: M54.50, M79.605 Provided education concerning low back pain. Continue supportive care treatments with as needed analgesia. May use ice or heat as needed. Back exercise handout provided. Core strengthening encouraged. Seek immediate evaluation for loss of bladder or bowel control, unexplained fever, or progressive weakness or numbness. Released to return to work provided. Fantasma Soto MD Differential Diagnoses - Musculoskeletal low back pain with radicular symptoms to the left leg is more likely for the following reason(s): suggested by H&P Procedures documented in this encounter [facility] 08-13-2022 History of Present illness Narrative Floyd Mari MD Department of Orthopaedics Orthopaedics [address] [place] [address] Dept: [phone] Dept August 13, 2022 CHIEF COMPLAINT: New and Fracture of the Right Hand HPI Patient here today for right 5th MC fracture. States he was playing football and got mad and "lightly tapped" the side of the house. He is right hand dominant. Working at [employer]. 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 The urgent care placed patient on light duty, but his work is not really accommodating. He has been icing after work for about 2 hours. He is wearing an Exos brace. ASSESSMENT: S62.346A Closed nondisplaced fracture of base of fifth metacarpal bone of right hand, initial encounter (primary encounter diagnosis) PLAN: good alignment. We'll get him into a functional brace. OK to come out for motion and light activities. FOLLOW UP INSTRUCTIONS: As needed Mr. Balta Don was advised as to contrast therapies and/or to take analgesics/anti-inflammatories as needed and all contraindications were reviewed. OBJECTIVE: Mr. Balta Don is a pleasant 32 year old in no apparent distress. Gen:There were no vitals taken for this visit. nl development, non obese, no deformities ENT: Normocephalic, normal hearing, moist mucosa CV: Pulses:Radial= 2+ and symmetric, capillary refill < 2 secs, no peripheral edema/varicosities Skin: no rash, bruising or lesions. Good turgor. Psych: cooperative and appropriate, alert and oriented x 3, good mood and affect. Musculoskeletal: TTP over the base of the 5th. No malrotation or lag. IMAGING: IMPRESSION: Healing fracture of the fifth metacarpal. Crayon Sawyer: PSCB Transcribe Date/Time: Aug 14 2022 4:34P Dictated by : ROCAEL KELLY MD This examination was interpreted and the report reviewed and electronically signed by: ROCAEL KELLY MD on Aug 14 2022 4:37PM EST Results-Findings * * *Final Report* * * DATE OF EXAM: Aug 13 2022 7:53AM [id number] - XR HAND 3V PA/LAT/OBL RT / PROCEDURE REASON: Right hand pain * * * * Physician Interpretation * * * * EXAM TITLE: XR HAND 3V PA/LAT/OBL RT EXAM DATE/TIME: 08/13/2022 7:53 AM COMPARISON: X-ray hand on 07/24/2022 CLINICAL INDICATION/HISTORY: Right hand pain TECHNIQUE: PA, lateral and oblique views of the right hand are presented. FINDINGS: No acute fractures or subluxations are noted. The previously mentioned vertical fracture line in the base of the fifth metacarpal is no longer visualized. The mineralization of the bones is normal. There is no significant soft tissue swelling. Supporting Subjective Information Below: Past Medical History: PAST MEDICAL HISTORY Diagnosis Date PMH - PAST MEDICAL HISTORY OF Color Vision - Normal Past Surgical History: PAST SURGICAL HISTORY Procedure Laterality Date NONE Family History: FAMILY HISTORY Adopted: Yes Problem Relation Age of Onset None Mother None Father Social History: Social History Tobacco Use Smoking status: Every Day Types: Cigars Smokeless tobacco: Current Types: Chew Vaping Use Vaping Use: Never used Substance Use Topics Alcohol use: No Drug use: No Medications: Current Outpatient Medications Medication Sig escitalopram oxalate (LEXAPRO) 10 mg tablet Take 1 tablet by mouth once daily. (Patient not taking: Reported on 08/13/2022) dextroamphetamine-amphetamine (ADDERALL XR) 30 mg 24 hr capsule Take 1 capsule by mouth once daily. (Patient not taking: Reported on 07/24/2022) clonazePAM (KLONOPIN) 0.5 mg tablet Take 1 tablet by mouth twice daily as needed for Anxiety. (Patient not taking: Reported on 07/24/2022) No current facility-administered medications for this visit. Allergies: Patient has no known allergies. ROS: General (negative for fatigue, malaise, weight loss/gain) HEENT (negative for headache, earache, recent vision changes, sinus pain, sore throat) Respiratory (no recent shortness of breath, hemoptysis) CV (negative for chest tightness, palpitations) Musculoskeletal (see HPI) Psych (no depression, anxiety) Floyd Mari MD documented in this encounter [facility] 08-13-2022 History of Present illness Narrative Radiology Service Progress Note PATIENT NAME: Balta Don DATE OF SERVICE: August 13, 2022 TIME: 8:38 AM PATIENT IDENTITY VERIFICATION COMPLETED USING TWO (2) IDENTIFIERS: Name and Date of confirmed by patient verbally. FALL SCREENING: Has the patient had 2 falls in the last year or 1 fall with injury or currently using an Ambulatory Assistive Device (Walker, Cane, Wheelchair, Crutches, etc.)? No PATIENT GENDER DATA: Male PATIENT RELEVANT IMPLANT DATA REVIEWED: Not Applicable RADIOLOGY DEPARTMENT: General X-ray: Exam(s) Completed: Upper Extremity X-Ray(s): Hand, right PERIPHERAL IV DATA: Not applicable SIGNED BY: RT Kris(R) August 13, 2022 8:38 AM documented in this encounter [facility] 07-24-2022 History of Present illness Narrative This note was created using [employer]. Subjective Balta Don is a 32 year old male. HPI Patient presents with a right hand injury x 1 day. He punched a window yesterday. The window did not break. He has pain and swelling along the ulnar hand. He is right handed. No numbness or tingling. Review of Systems Musculoskeletal: Right hand pain All other systems reviewed and are negative. PAST MEDICAL HISTORY Diagnosis Date PMH - PAST MEDICAL HISTORY OF Color Vision - Normal Current Outpatient Medications Medication Sig Dispense Refill escitalopram oxalate (LEXAPRO) 10 mg tablet Take 1 tablet by mouth once daily. 30 tablet 0 dextroamphetamine-amphetamine (ADDERALL XR) 30 mg 24 hr capsule Take 1 capsule by mouth once daily. (Patient not taking: Reported on 07/24/2022) 30 capsule 0 clonazePAM (KLONOPIN) 0.5 mg tablet Take 1 tablet by mouth twice daily as needed for Anxiety. (Patient not taking: Reported on 07/24/2022) 20 tablet 2 No current facility-administered medications for this visit. PAST SURGICAL HISTORY Procedure Laterality Date NONE FAMILY HISTORY Adopted: Yes Problem Relation Age of Onset None Mother None Father Social History Tobacco Use Smoking status: Every Day Packs/day: 0.50 Types: Cigarettes Smokeless tobacco: Never Substance Use Topics Alcohol use: No Drug use: No Objective BP 122/74 Pulse 88 Temp 36.8 C (98.3 F) Resp 16 Wt 63 kg (139 lb) SpO2 95% Physical Exam Vitals reviewed. Constitutional: Appearance: Normal appearance. HENT: Head: Normocephalic and atraumatic. Musculoskeletal: Comments: Exam of the right hand reveals moderate swelling of the dorsal right hand with ttp of the 4th and 5th metatarsal. Limited range of motion of the fifth digit due to pain. Radial pulse 2+. Skin: General: Skin is warm and dry. Findings: No rash. Neurological: Mental Status: He is alert. Assessment and Plan ASSESSMENT/PLAN: 1. Nondisplaced fracture of base of fifth metacarpal bone, right hand, initial encounter for closed fracture - ICD9: 815.02, ICD10: S62.346A Patient has a nondisplaced fracture of the base of the fifth metacarpal on the right hand. I placed him in a boxer fracture splint, preformed. We will have him follow-up with orthopedics. Rest, ice, ibuprofen or Tylenol for pain. Patient agreeable with plan. - XR HAND GENERAL 3V PA/LAT/OBL RIGHT Cecy Torres PA-C documented in this encounter [facility] 07-24-2022 History of Present illness Narrative Radiology Service Progress Note PATIENT NAME: Balta Don DATE OF SERVICE: July 24, 2022 TIME: 11:24 AM PATIENT IDENTITY VERIFICATION COMPLETED USING TWO (2) IDENTIFIERS: Name and Date of confirmed by patient verbally. FALL SCREENING: Has the patient had 2 falls in the last year or 1 fall with injury or currently using an Ambulatory Assistive Device (Walker, Cane, Wheelchair, Crutches, etc.)? No PATIENT GENDER DATA: Male PATIENT RELEVANT IMPLANT DATA REVIEWED: Not Applicable RADIOLOGY DEPARTMENT: General X-ray: Exam(s) Completed: Upper Extremity X-Ray(s): Hand, right PERIPHERAL IV DATA: Not applicable SIGNED BY: RT Diane(R) July 24, 2022 11:24 AM documented in this encounter [facility] 01-04-2022 Miscellaneous Notes reports patient was seen in [facility] ER last night with overdose. Reports he took a percocet that was probably laced with fentanyl. Reports it was not an intentional overdose. Report ER gave him narcan 3 times and he has been vomiting since 4 am. Her guess is he's vomited greater than 7 times today already. Reports he is dizzy when he stands up, he is weak, and his lips are dry, he has not kept any food or liquids down, and he has not eaten in 2 days. agreeable to return to ER for evaluation. documented in this encounter [facility] 07-05-2021 History of Present illness Narrative This note was created using [employer]. Subjective Balta Don is a 31 year old male. HPI Patient presents with left ear pain and whole jaw pain for a week. He thinks he does have an infection in his teeth possibly. He has not seen a dentist in a while. He has been taking ibuprofen [id number]. His left ear started to bother him today as well. Denies any significant facial swelling. No fever. No chest pain or shortness of breath. No cough or congestion. Review of Systems Constitutional: Negative. HENT: Positive for dental problem and ear pain. Jaw pain Eyes: Negative. Respiratory: Negative. Cardiovascular: Negative. Gastrointestinal: Negative. Genitourinary: Negative. Musculoskeletal: Negative. All other systems reviewed and are negative. PAST MEDICAL HISTORY Diagnosis Date PMH - PAST MEDICAL HISTORY OF Color Vision - Normal Current Outpatient Medications Medication Sig Dispense Refill escitalopram oxalate (LEXAPRO) 10 mg tablet Take 1 tablet by mouth once daily. 30 tablet 0 dextroamphetamine-amphetamine (ADDERALL XR) 30 mg 24 hr capsule Take 1 capsule by mouth once daily. 30 capsule 0 clonazePAM (KLONOPIN) 0.5 mg tablet Take 1 tablet by mouth twice daily as needed for Anxiety. 20 tablet 2 amoxicillin (AMOXIL) 875 mg tablet Take 1 tablet by mouth twice daily for 10 days. 20 tablet 0 No current facility-administered medications for this visit. PAST SURGICAL HISTORY Procedure Laterality Date NONE FAMILY HISTORY Adopted: Yes Problem Relation Age of Onset None Mother None Father Social History Tobacco Use Smoking status: Current Every Day Smoker Packs/day: 0.50 Types: Cigarettes Smokeless tobacco: Never Used Substance Use Topics Alcohol use: No Drug use: No Objective BP 119/78 Pulse 93 Temp 36.4 C (97.6 F) Resp 20 Wt 63.3 kg (139 lb 9.6 oz) SpO2 100% Physical Exam Vitals reviewed. Constitutional: Appearance: Normal appearance. HENT: Head: Normocephalic and atraumatic. Right Ear: Tympanic membrane, ear canal and external ear normal. Left Ear: Tympanic membrane, ear canal and external ear normal. Mouth/Throat: Comments: Patient has severe decay and his posterior molars on the left and right upper teeth. Some erythema mild swelling of the gumline. No significant overlying facial swelling. He is tender on the jaw. Cardiovascular: Rate and Rhythm: Normal rate and regular rhythm. Heart sounds: Normal heart sounds. Pulmonary: Effort: Pulmonary effort is normal. Breath sounds: Normal breath sounds. Musculoskeletal: Cervical back: Neck supple. Skin: General: Skin is warm and dry. Neurological: Mental Status: He is alert. Assessment and Plan ASSESSMENT/PLAN: 1. Dental infection - ICD9: 522.4, ICD10: K04.7 Amoxicillin prescribed. Recommend follow-up with dentist. Analgesia discussed with [id number] medicines. Patient agreeable. Cecy Torres PA-C documented in this encounter [facility] 04-07-2021 History of Present illness Narrative Radiology Service Progress Note PATIENT NAME: Balta Don DATE OF SERVICE: April 07, 2021 TIME: 12:54 PM PATIENT IDENTITY VERIFICATION COMPLETED USING TWO (2) IDENTIFIERS: Name and Date of confirmed by patient verbally. FALL SCREENING: Has the patient had 2 falls in the last year or 1 fall with injury or currently using an Ambulatory Assistive Device (Walker, Cane, Wheelchair, Crutches, etc.)? No PATIENT GENDER DATA: Male PATIENT RELEVANT IMPLANT DATA REVIEWED: Yes RADIOLOGY DEPARTMENT: General X-ray: Exam(s) Completed: Upper Extremity X-Ray(s): Shoulder, AP / TRUE AP / AXILLARY left PERIPHERAL IV DATA: Not applicable SIGNED BY: RT Crystal(R) April 07, 2021 12:54 PM documented in this encounter [facility] Discharge summary Note Date/Time September 13, 2024 5:14am [facility] Medical Records Department [address] [place] [address] Emergency Department Summary 09/13/24 MR#: [id number] Acct: [id number] Name: BALTA DON Rep #:[id number] : 1990 34 From: Floyd Musa MD PCP: Dr. Brent Miranda MD Status:RE G ER Location: ED HPI History of Present Illness Chief Complaint: Eye Problem Informant: patient Narrative Narrative: 34-year-old male left eye discomfort for about 2 days, came in to have it evaluated, it is bothering him so much he is having trouble sleeping. It has been tearing a lot and red, but no other discharge. No fevers or chills or concurrent URI symptoms except for some runny nose that started as a result of the eye tearing. He is a contact lens wearer, soft monthly disposables. He states he lost the right one, and the left one maybe has been in for 2 weeks andhe thinks this discomfort started when he was removing his contact. PFSH PFS Medical History no medical history no medical history Home Medications ?Medication ?Instructions ?Recorded ?Last Taken ?Type NK 01/05/22 Unknown History ciprofloxacin HCl 0.3 % eye drops See Rx Instructions LEFT EYE 09/13/24 Unknown Rx .COMPLEX #5 mL Allergy/AdvReac Type Severity Reaction Status Date / Time naproxen (From Naprosyn) Allergy Rash Verified 09/13/24 03:10 Surgical History no surgical history Social History Smoking Status: Current every day smoker tobacco type: cigarettes and cigars ROS ROS ED Constitutional Constitutional ED: Denies chills or fever(s) Eyes Eyes: Reports as per HPI, eye pain and photophobia ENT ENT ED: Denies ear pain, rhinorrhea or sore throat Neurologic Neurologic: Denies headache(s), paresthesias or weakness EXAM Physical Exam Const Vital Signs: 09/13/24 03:10 Temperature 97 F L Temperature Source Oral Pulse Rate 66 Respiratory Rate 18 Blood Pressure 137/88 H Blood Pressure Mean 104 Pulse Ox 95 Oxygen Delivery Method Room Air Positive well nourished and well developed General Appearance ED: well developed and NAD HEENT atraumatic; Negative for tenderness Mouth ED: Yes oral and palatal mucosa normal and Yes lips normal Mouth: oral and palatal mucosa normal and lips normal Eyes PERRL and EOMs intact bilaterally Eyes Narrative: left eye diffuse conjunctival injection. No foreign bodies beneath the lid. Resp normal respiratory effort Neuro oriented x3, CN's II-XII intact bilaterally and gait normal Sensorium / Orientation: alert Skin Lesions: no lesions Rashes: no rashes MDM MDM MDM Narrative Medical decision making narrative: Will perform slit-lamp exam after treating with topical tetracaine, which reallytook his pain away. On slit lamp, there is no hyphema or hypopyon, the anteriorchamber is deep and quiet. On the surface of the cornea, there are multiple abnormal areas most small, some pinpoint. There is a central 1-2 mm corneal ulcer, there may be another 1 at approximately the 3 o'clock position, and the fine pinpoint stuff looked more like debris. I had them try Eric lens, he didnot tolerate it well and irrigated just a little, and on reexamination with slitlamp that does look better. I do not see any linear abrasions or lacerations ofthe cornea and he has a negative Sukh sign. Given all of this, I have advisedhim to stay out of his contacts and he needs antibiotic drops, and follow-up with ophthalmology as soon as possible, given appropriate information for that. Visual acuity is 20/30 on the left, 20/200 on the right without his contact lenses in, 20/30 OU Discharge Plan Triage Chief Complaint: Eye Problem ED Provider: Floyd Musa Dx/Rx/DC Orders Clinical Impression: Corneal ulcer of left eye Instructions: ED Corneal Ulcer Prescriptions: New ciprofloxacin HCl 0.3 % drops See Rx Instructions .ROUTE .COMPLEX Qty: 5 0RF Rx Instructions: put 1-2 drps in affected eye(s) every 2hr up to 8 times/day x2days; then 4 times/day x5days No Action NK Primary Care Provider: rBent Miranda Referrals: Elodia Navarro MD [Med Staff - Active Staff] - As soon as possible (call for urgent appt, tell them you were in the ER and diagnosed w/ corneal ulcer) Print Language: Ecuadorean Disposition Disposition: Home, Self Care What to do if you have Problems For any increased pain, shortness of breath, bleeding, nausea or vomiting, chestpain, or any unexpected problems, contact your Primary Care Provider. Call [facility] ([phone]) or report to the closest Emergency Room. Call 911 if necessary. 09/13/24513 <Electronically signed by Floyd Musa MD> Cosigner Signature (if applicable): CC: Dr. Brent Miranda MD ~ Signed [facility] Work Phone: Evaluation note* Diagnosis Dental infection- Primary Acute apical periodontitis of pulpal origin documented in this encounter [facility] noteNo assessment information availableWFisher-Titus [facility] Work Phone: Evaluation note* Diagnosis Nondisplaced fracture of base of fifth metacarpal bone, right hand, initial encounter for closed fracture- Primary documented in this encounter [facility] note* Diagnosis Right hand pain- Primary Pain in limb documented in this encounter [facility] note* Diagnosis Closed nondisplaced fracture of base of fifth metacarpal bone of right hand, initial encounter- Primary documented in this encounter [facility] note* Diagnosis Right hand pain Pain in limb documented in this encounter [facility] note* Diagnosis Hand injury, right, initial encounter documented in this encounter [facility] note* Diagnosis Low back pain radiating to left leg- Primary Lumbago [facility] Discharge instructions Additional Instructions Follow-up with a dentist of your choice as soon as possible. Motrin and Tylenol for pain. [place] for pain tonight. Warm salt water gargling. Penicillin 1 pill 4 times a day till gone.[facility] Work Phone: Hospital Discharge instructionsWFisher-[facility] Work Phone: Reason for referral (narrative)* Diagnostic Procedure Only (Urgent) - Closed Specialty Diagnoses / Procedures Referred By Contac t Referred To Contact XR IMAGING Diagnoses Nondisplaced fracture of base of fifth metacarpal bone, right hand, initial encounter for closed fracture Procedures XR HAND GENERAL 3V PA/LAT/OBL RIGHT RADEX HAND MINIMUM 3 VIEWS Cecy Torres PA-C [address] [place] [address] Xr Imaging Referral ID Status Reason Start Date Expiration Date V isits Requested Visits Authorized [id number] Closed Auto-Generate d Referral 07/24/2022 08/23/2023 1 1 [facility] for referral (narrative)* Diagnostic Procedure Only (Routine) - Pending Review Specialty Diagnoses / Procedures Referred By Contac t Referred To Contact XR IMAGING Diagnoses Right hand pain Procedures XR HAND GENERAL 3V PA/LAT/OBL RIGHT RADEX HAND MINIMUM 3 VIEWS Floyd Mari MD [address] [place] [address] Xr Imaging Referral ID Status Reason Start Date Expiration Date Visits Requested Visits Authorized [id number] Pending Review Auto-Generat ed Referral 08/01/2022 08/31/2023 1 1 [facility] for referral (narrative)* Diagnostic Procedure Only (Routine) - Closed Specialty Diagnoses / Procedures Referred By Contac t Referred To Contact XR IMAGING Diagnoses Right hand pain Procedures XR HAND GENERAL 3V PA/LAT/OBL RIGHT RADEX HAND MINIMUM 3 VIEWS Floyd Mari MD [address] [facility] [place] [address] [place] [address] Referral ID Status Reason Start Date Expiration Date V isits Requested Visits Authorized [id number] Closed Auto-Generate d Referral 08/01/2022 08/31/2023 1 1 [facility] for referral (narrative)* Diagnostic Procedure Only (Urgent) - Closed Specialty Diagnoses / Procedures Referred By Contac t Referred To Contact XR IMAGING Diagnoses Nondisplaced fracture of base of fifth metacarpal bone, right hand, initial encounter for closed fracture Procedures XR HAND GENERAL 3V PA/LAT/OBL RIGHT RADEX HAND MINIMUM 3 VIEWS Cecy Torres PA-C [address] [place] [address] [place] [address] Referral ID Status Reason Start Date Expiration Date V isits Requested Visits Authorized [id number] Closed Auto-Generate d Referral 07/24/2022 08/23/2023 1 1 [facility] for visit Narrative* Diagnostic Procedure Only (Routine) - Closed Specialty Diagnoses / Procedures Referred By Contac t Referred To Contact XR IMAGING Diagnoses Right hand pain Procedures XR HAND GENERAL 3V PA/LAT/OBL RIGHT RADEX HAND MINIMUM 3 VIEWS Floyd Mari MD [address] [place] [address] [place] [address] Referral ID Status Reason Start Date Expiration Date V isits Requested Visits Authorized [id number] Closed Auto-Generate d Referral 08/01/2022 08/31/2023 1 1 [facility] for visit Narrative* Diagnostic Procedure Only (Urgent) - Closed Specialty Diagnoses / Procedures Referred By Contac t Referred To Contact XR IMAGING Diagnoses Nondisplaced fracture of base of fifth metacarpal bone, right hand, initial encounter for closed fracture Procedures XR HAND GENERAL 3V PA/LAT/OBL RIGHT RADEX HAND MINIMUM 3 VIEWS Cecy Torres PA-C [address] [place] [address] [place] [address] Referral ID Status Reason Start Date Expiration Date V isits Requested Visits Authorized [id number] Closed Auto-Generate d Referral 07/24/2022 08/23/2023 1 1 [facility] for visit Narrative* Diagnostic Procedure Only (Urgent) - Closed Specialty Diagnoses / Procedures Referred By Contac t Referred To Contact XR IMAGING Diagnoses Acute pain of left shoulder Procedures XR SHOULDER GENERAL 3V OR MORE AP/TRUE AP/OTHER LEFT RADEX SHOULDER COMPLETE MINIMUM 2 VIEWS Александр Chand APRN.[employer] [address] [facility] [place] [address] [place] [address] Referral ID Status Reason Start Date Expiration Date V isits Requested Visits Authorized [id number] Closed Auto-Generate d Referral 04/07/2021 05/07/2022 1 1 [facility] Chief Complaint and Reason for Visit Chief Complaint DENTAL PAIN Chief Complaint DENTAL PAIN anxirty Chief Complaint anxirty OVERDOSE Chief Complaint anxirty OVERDOSE concerns for dehydration Chief Complaint Admit Date EYE September 13, 2024 3:09 am Advance Directives No Advanced Directives Records Found Advance Directive Response Recorded Date/ Time Living Will No August 06, 2021 8:59pm Power of Hammerer Helper No August 06 8:59pm Advance Directive Response Recorded Date/ Time Living Will No September 27, 2021 6:21am Power of Hammerer Helper No September 27 6:21am Advance Directive Response Recorded Date/ Time Living Will No January 03 10:34pm Power of Hammerer Helper No January 03, 2022 10:34pm Advance Directive Response Recorded Date/ Time Living Will No January 05 022 6:51am Power of Hammerer Helper No January 05, 2022 6:51am Advance Directive Response Recorded Date/ Time Do you have a Healthcare Power of Hammerer Helper? No September 13, 2024 3:12am Summary Purpose Family History No Family History Records FoundNo Family History Records Found Additional Source Comments Source Comments (unrecognize d section and content) In the event this informatio n is protected by the Federal Confidentiality of Alcohol and Drug Abuse Patient Records regulations: The Federal rules restrict any use of the information to criminally investigate or prosecute any alcohol or drug abuse patient.[facility] the event this information is protected by the Federal Confidentiality of Alcohol and Drug Abuse Patient Records regulations: The Federal rules restrict any use of the information to criminally investigate or prosecute any alcohol or drug abuse patient.[facility] the event this information is protected by the Federal Confidentiality of Alcohol and Drug Abuse Patient Records regulations: The Federal rules restrict any use of the information to criminally investigate or prosecute any alcohol or drug abuse patient.[facility] the event this information is protected by the Federal Confidentiality of Alcohol and Drug Abuse Patient Records regulations: The Federal rules restrict any use of the information to criminally investigate or prosecute any alcohol or drug abuse patient.[facility] the event this information is protected by the Federal Confidentiality of Alcohol and Drug Abuse Patient Records regulations: The Federal rules restrict any use of the information to criminally investigate or prosecute any alcohol or drug abuse patient.[facility] the event this information is protected by the Federal Confidentiality of Alcohol and Drug Abuse Patient Records regulations: The Federal rules restrict any use of the information to criminally investigate or prosecute any alcohol or drug abuse patient.[facility] the event this information is protected by the Federal Confidentiality of Alcohol and Drug Abuse Patient Records regulations: The Federal rules restrict any use of the information to criminally investigate or prosecute any alcohol or drug abuse patient.[facility] the event this information is protected by the Federal Confidentiality of Alcohol and Drug Abuse Patient Records regulations: The Federal rules restrict any use of the information to criminally investigate or prosecute any alcohol or drug abuse patient.[facility] the event this information is protected by the Federal Confidentiality of Alcohol and Drug Abuse Patient Records regulations: The Federal rules restrict any use of the information to criminally investigate or prosecute any alcohol or drug abuse patient.[facility] Reason for Visit (unrecogniz ed section and content) Reason Comments Pain left ear pain, whole jaw is in pain x 1 week Specialty Diagnoses / Procedures Referred By Renuka t Referred To Contact [facility] / [facility] Diagnoses Left ear pain, jaw pain Procedures URGENT CARE Self Cecy Torres, [facility] [address] [place] [address] Referral ID Status Reason Start Date Expiration Date Visits Re quested Visits Authorized [id number] Closed 07/05/2021 02/24/2022 1 1 Reason Comments Vomiting Reason Comments Hand Injury right hand, hit a wi ndow x 1 day Reason Comments New Fracture Reason Comments Low Back Pain Radiating to L hip a nd thigh x3 weeks Goals (unrecognized section and content) Goals may be documented in a n alternate sectionGoals may be documented in an alternate sectionGoals may be documented in an alternate sectionGoals may be documented in an alternate sectionGoals may be documented in an alternate section (unrecognized sect ion and content) No Status Records FoundNo Status Records Found INFORMATION SOURCE (unrecogn ized section and content) DATE CREATED AUTHOR 08/16/2024 [facility] DATE CREATED AUTHOR AUTHOR'S KALIE ATION 09/15/2024 [facility] Care Teams (unrecognized sec tion and content) Team Status: Active Member Role/Relationship Status Dates Dr. Brent Miranda MD Primary Care Provider Active Team Status: Inactive Member Role/Relationship Status Dates Dr. Brent Miranda MD Primary Care Provider Active Start: September 13, 2024 End: September 13, 2024 Dr. Floyd Musa MD Emergency Provider Active Start: September 13, 2024 End: September 13, 2024 FOR RECORDS PERTAINING TO PATIENTS WHO ARE OR HAVE BEEN ENROLLED IN A CHEMICAL DEPENDENCY/SUBSTANCEABUSE PROGRAM, SOME INFORMATION MAY BE OMITTED. This clinical summary was aggregated from multiple sources. Caution should be exercised in using it in the provision of clinical care. This summary normalizes information from multiple sources, and as a consequence, information in this document may materially change the coding, format and clinical context of patient data. In addition, data may be omitted in some cases. CLINICAL DECISIONS SHOULD BE BASED ON THE PRIMARY CLINICAL RECORDS. [facility] provides no warranty or guarantee of the accuracy or completeness of information in this document.
--- NOTE | 2024-09-18 03:26 | EX.ED.VIS.EY ---
HPI History of Present Illness Chief Complaint: Eye Problem Informant: patient Narrative Narrative: Presented to the ED make sure he can fill his prescription. Seen 5 days ago due to eye complaints on the left side. Diagnosed with corneal ulcer. He states he does wear contacts that was taken out every night. Did not sleep in him. He did not follow-up with ophthalmology. He states he put back in 2 contacts. Denies visual changes. Feels some discomfort. No nausea or vomiting. PFSH PFSH Home Medications Medication Instructions Recorded Last Taken Type NK 01/05/22 Unknown History ciprofloxacin HCl 0.3 % eye drops See Rx Instructions LEFT EYE 09/13/24 Unknown Rx .COMPLEX #5 mL Allergy/AdvReac Type Severity Reaction Status Date / Time naproxen (From [facility]) Allergy Rash Verified 09/13/24 03:10 Social History Smoking Status: Current every day smoker tobacco type: cigarettes and cigars ROS ROS ED Constitutional Constitutional ED: Denies fever(s) Eyes Eyes: Reports other Details: Left eye discomfort Cardiovascular Cardiovascular: Denies chest pain Respiratory/Chest Respiratory/Chest: Denies cough Gastrointestinal Gastrointestinal: Denies diarrhea or vomiting Musculoskeletal Musculoskeletal: Denies none Integumentary Denies rash or wounds Neurologic Neurologic: Denies weakness EXAM Physical Exam Const Vital Signs: 09/18/24 02:58 Temperature 97.7 F L Temperature Source Temporal Pulse Rate 72 Respiratory Rate 18 Blood Pressure 114/81 H Blood Pressure Mean 92 Pulse Ox 97 Oxygen Delivery Method Room Air Positive well nourished and well developed General Appearance ED: well developed HEENT normocephalic and atraumatic Eyes Eyes Narrative: Visual acuity: Corrected. 20/25 OD, 20/25 OS, 20/15 OU. Contact then removed on the left side. Left eyelid everted moist Q-tip surrounding margins. No foreign body. Slit-lamp examination scleral erythema medially. There is a corneal ulcer noted 1 o'clock position of the eye. Fluorescein with no uptake. Negative Sukh's. No corneal defect noted. Neck full ROM Resp normal respiratory effort and normal air movement Cardio regular rate and regular rhythm GI soft to palpation Extremity normal to inspection and full ROM Neuro oriented x3 Skin no rashes or lesions noted and no wounds MDM MDM MDM Narrative Medical decision making narrative: Interventions / MDM: Differential diagnosis: Corneal ulcer Diagnosis considered but do not suspect: No abrasions My EKG interpretation: N/A Imaging independently reviewed and interpreted by myself: N/A External documents reviewed: N/A Test considered but not ordered:N/A ED course: Visual acuity intact corrected. Contact removed, slit-lamp examination tetracaine instilled there is an ulcer at the 1 o'clock position. Patient had suspected ulcer 5 days ago now more visualized. No defects noted. I spoke with on-call ophthalmology Dr. Alvarez, as patient symptoms started 5 days ago. ciprofloxacin drops started in the ED every 2 hours. He will keep the contact off. He will call the office in the morning to be seen today for continued care. Re-evaluation: stable Disposition discussed with patient/family/significant other: Patient Case discussed with consulting clinician: Ophthalmology This note was generated with [employer] dictation software. It may contain incorrect words, spelling, and punctuation that were not noted in checking the note before signing. Discharge Plan Triage Chief Complaint: Eye Problem ED Provider: Mike Suazo Dx/Rx/DC Orders Clinical Impression: Corneal ulcer of left eye Instructions: ED Corneal Ulcer Prescriptions: No Action NK ciprofloxacin HCl 0.3 % drops See Rx Instructions .ROUTE .COMPLEX Qty: 5 0RF Rx Instructions: put 1-2 drps in affected eye(s) every 2hr up to 8 times/day x2days; then 4 times/day x5days Primary Care Provider: Brent Miranda Referrals: Blaine Alvarez MD [Med Staff - Active Staff] - As soon as possible Brent Miranda MD [Primary Care Provider] - Activity Restrictions/Additional Instructions: You have a corneal ulcer noted at the 1 o'clock position of your left eye. Discussed with Dr. Alvarez. Use the eyedrop 1 to 2 drops every 2 hours while awake. Call the office at 8 AM to be seen today. Leave your contacts out of your left eye. Print Language: Wolof Disposition Disposition: Home, Self Care
--- NOTE | 2024-09-18 03:27 | ED.RN ---
VISUAL ACUITY COMPLETED WITH CONTACTS IN, THEN CONTACTS REMOVED.
[2024-09-18] MEDS: Ciprofloxacin 0.3% 2.5ml Bottle 1 DRP LEFT EYE (04:01)
[2024-09-18] MEDS: Tetracaine 0.5% Ophthalmic Bottle 1 DRP LEFT EYE (04:02)
== END 2024-09-18 03:30 | disposition home or self-care (01) ==
PROVIDERS: Emergency Provider Emergency Medicine; PCP Family Medicine; Visit Provider Emergency Medicine
DX: H16.002 Unspecified corneal ulcer, left eye (principal); F17.210 Nicotine dependence, cigarettes, uncomplicated; F17.290 Nicotine dependence, other tobacco product, uncomplicated; X58.XXXA Exposure to other specified factors, initial encounter
CPT/HCPCS: 99283